=== PATIENT | female | born 1950 | race Native Hawaiian/Other Pacific Islander ===

== ENCOUNTER → 2017-08-15 | Outpatient (CLI) | payer MEDICARE, OTHER ==
--- NOTE | 2017-08-28 12:55 | P.ARTDOP ---
Arterial Doppler LOWER EXTREMITY ARTERIAL DOPPLER: DATE OF SERVICE: 08/15/2017 Reason for study: Toe ulcer. Doppler waveforms: Multiphasic bilaterally throughout. Pulse volume recording: Normal configuration. Pressure gradients: None. Ankle-brachial indices: Greater than 1 bilaterally. Toe pressures: [] on the right, [] on the left Impression: Normal study.
== END | disposition home or self-care (01) ==
LOC: RADUSWWP 08:34
PROVIDERS: ATTEND Family Medicine
DX: S91.204A Unspecified open wound of right lesser toe(s) with damage to nail, initial encounter (principal); X58.XXXA Exposure to other specified factors, initial encounter
CPT/HCPCS: 93923

== ENCOUNTER → 2018-03-14 | Outpatient (CLI) | payer MEDICARE, OTHER ==
--- NOTE | 2018-03-14 13:15 | US ---
EXAMINATION TYPE: US thyroid st tissue head/neck DATE OF EXAM: 03/14/2018 COMPARISON: NONE CLINICAL HISTORY: E04.1 THYROID NODULE. GLAND SIZE: Right Lobe: 4.6 x 1.5 x 1.9 cm Overall Parenchyma: homogenous Left Lobe: 3.7 x 1.6 x 1.7 cm Overall Parenchyma: homogeneous Isthmus Thickness: 0.3 cm NODULES RIGHT: # of nodules measured on right: 1 1. 2.6 x 1.7 x X 2.0 cm isoechoic solid nodule at the mid pole with well-defined margins. This nod ule is wider than tall and shows intranodular vascularity. LEFT: # of nodules measured on left: 0 ISTHMUS: # of nodules measured in the isthmus: 0 Bilateral neck scanned, no evidence of lymphadenopathy. IMPRESSION: Dominant 2.6 cm right thyroid nodule.
== END | disposition home or self-care (01) ==
LOC: RADUSWWP 12:15
PROVIDERS: ATTEND Otolaryngology
DX: E04.1 Nontoxic single thyroid nodule (principal)
CPT/HCPCS: 76536

== ENCOUNTER 2018-04-03 11:52 | Day surgery (SDC) | payer MEDICARE, OTHER ==
[2018-04-03 12:43] VITALS: TEMP 98
[2018-04-03] MEDS ORDERED: ALPRAZolam 0.25 MG TAB PO STA (12:51)
--- NOTE | 2018-04-03 13:55 | US ---
ULTRASOUND GUIDED FNA THYROID BIOPSY: CLINICAL HISTORY: Right thyroid nodule FINDINGS: The procedure was explained to the patient. The risks, complications, benefits and alternatives were discussed and any questions were answered. Informed consent was obtained. Patient was placed supin e on the ultrasound table and prepped and draped in the usual sterile fashion. Utilizing a 25 gauge needle, five passes were made into the requested nodule. Patient was stable throughout the procedure. Pathology is pending. All elements of maximal barrier technique were utilized. IMPRESSION: 1. Successful ultrasound guided FNA thyroid biopsy.
[2018-04-03 13:58] VITALS: BP 104/73; PULSE 84; RESP 14
== END 2018-04-03 14:22 | disposition home or self-care (01) ==
LOC: RADPROMAIN 11:52
PROVIDERS: ATTEND Otolaryngology
DX: E04.1 Nontoxic single thyroid nodule (principal)
CPT/HCPCS: 10022; 76942; 88173; 88305

== ENCOUNTER → 2018-07-24 | Outpatient (CLI) | payer MEDICARE, OTHER ==
--- NOTE | 2018-07-24 16:26 | BD ---
EXAMINATION TYPE: Axial Bone Density DATE OF EXAM: 07/24/2018 CLINICAL HISTORY Height: 60 inches Weight: 148 FRAX RISK QUESTIONS: Alcohol (3 or more units per day): no Family History (Parent hip fracture): no Glucocorticoids (More than 3mos): no (Ex: prednisone, prednisolone, methylprednisolone, dexamethasone, and hydrocortisone). History of Fracture in Adulthood: no Secondary Osteoporosis: 1. Type 1 Diabetes: no 2. Hyperthyroidism: no 3. Menopause before 45: hysterectomy age 36; menopause age 44 4. Malnutrition: unsure 5. Chronic liver disease: no Rheumatoid Arthritis: YES Current Tobacco Use: no RISK FACTORS HISTORY OF: Surgery to Wrist (right): to release tendon for more mobility When: unsure Family History of Osteoporosis: unsure Active: no Diet low in dairy products/other sources of calcium: unsure Postmenopausal woman: yes Take estrogen and/or progesterone medications: not now Lost more than 2 inches in height since high school: yes Frequent falls: not recently...did frequently when living at home Poor Health: yes Hyperparathyroidism: no Adrenal Insufficiency: no MEDICATIONS: Prednisone or other steroids: denies Thyroid Medications: no Osteoporosis Medications: no Additional Medications: cholesterol meds ; calcium, see med sheets attached Additional History: Right thyroid nodule & FNA thyroid biopsy with Ultrasound; polio as child, scolio sis; right knee surgery EXAM MEASUREMENTS: Bone mineral densitometry was performed using the Cympel System. Bone mineral density as measured about the Lumbar spine is: ----- L1-L4(G/cm2): 0.806 T Score Values are as follows: ----- L2: -3.1 ----- L3: -2.4 ----- L4: -3.2 ----- L1-L4: -3.1 Bone mineral density has: Decreased -3.9% since study of: 12/17/2007 Bone mineral density about the R hip (g/cm2): 0.646 Bone mineral density about the L hip (g/cm2): 0.587 T Score values are as follows: -----R Neck: -2.8 -----L Neck: -3.2 -----R Total: -2.5 -----L Total: -3.2 Bone mineral density has: Decreased -13.1% since study of: 09/25/2013 IMPRESSION: Osteoporosis (T Score less than -2.5). There is increased fracture risk and therapy is usually indicated based on age. Re-Screen 1-2 years. NOTE: T-SCORE=SD OF THE YOUNG ADULT MEAN.
--- NOTE | 2018-07-28 08:08 | MM ---
Reason for exam: screening (asymptomatic). Last mammogram was performed 3 years and 7 months ago. History: Patient is postmenopausal. Took estrogen for 5 years. Physical Findings: A clinical breast exam by your physician is recommended on an annual basis and results should be correlated with mammographic findings. MG 3D Screening Mammo W/Cad Bilateral CC and MLO view(s) were taken. Prior study comparison: December 15, 2014, bilateral MG screening mammo w CAD. September 25, 2013, bilateral digital screening mammo w/CAD. The breast tissue is heterogeneously dense. This may lower the sensitivity of mammography. No significant changes when compared with prior studies. ASSESSMENT: Benign, BI-RAD 2 RECOMMENDATION: Routine screening mammogram of both breasts in 1 year.
== END | disposition home or self-care (01) ==
LOC: RADBDWWP 12:05
PROVIDERS: ATTEND Family Medicine
DX: Z12.31 Encounter for screening mammogram for malignant neoplasm of breast (principal); M81.0 Age-related osteoporosis without current pathological fracture
CPT/HCPCS: 77063; 77067; 77080

== ENCOUNTER → 2018-12-09 | Outpatient (CLI) | payer MEDICARE, OTHER ==
[~2018-12-09] MED LIST: SODIUM CHLORIDE 0.9% 500 ML 500 ML in EMPTY BAG 1 BAG IV PRN; ZOLEDRONIC ACID 5 MG in SODIUM CHLORIDE 0.9% 100 ML IV NR
[2018-12-09 13:55] VITALS: BP 123/70; PULSE 76; RESP 16; TEMP 97.6
== END | disposition home or self-care (01) ==
LOC: PROCWHC3 13:19
PROVIDERS: ATTEND Nurse Practitioner Acute Care
DX: M85.9 Disorder of bone density and structure, unspecified (principal); Z88.0 Allergy status to penicillin; Z88.5 Allergy status to narcotic agent
CPT/HCPCS: 96365; J3489

== ENCOUNTER → 2018-12-24 | Outpatient (CLI) | payer MEDICARE, OTHER ==
--- NOTE | 2018-12-24 12:45 | US ---
EXAMINATION TYPE: US thyroid st tissue head/neck DATE OF EXAM: 12/24/2018 COMPARISON: US 2018 CLINICAL HISTORY: E04.1 THYROID NODULE. Follow up thyroid nodule GLAND SIZE: Right Lobe: 5.0 x 2.0 x 1.8 cm Overall Parenchyma: heterogenous Left Lobe: 2.8 x 1.1 x 1.6 cm Overall Parenchyma: heterogeneous Isthmus Thickness: 0.3 cm NODULES RIGHT: # of nodules measured on right: 1 1. 2.7 X 2.0 x 2.4 cm hypoechoic mixed nodule at the lower pole with well-defined margins. This nod ule is wider than tall and shows intranodular vascularity. Prior size: 2.6 x 1.7 x 2.0 cm LEFT: # of nodules measured on left: 0 ISTHMUS: # of nodules measured in the isthmus: 0 Bilateral neck scanned, no evidence of lymphadenopathy. IMPRESSION: Heterogeneous gland with right lobe nodule described above.
== END | disposition home or self-care (01) ==
LOC: RADUSWWP 12:09
PROVIDERS: ATTEND Otolaryngology
DX: E04.1 Nontoxic single thyroid nodule (principal)
CPT/HCPCS: 76536

== ENCOUNTER → 2020-01-22 | Outpatient (CLI) | payer MEDICARE, OTHER ==
--- NOTE | 2020-01-22 08:46 | US ---
EXAMINATION TYPE: US thyroid st tissue head/neck DATE OF EXAM: 01/22/2020 COMPARISON: 03/07/1718, 04/03/2018, and 12/24/2018 CLINICAL HISTORY: E04.1 Thyroid nodule. GLAND SIZE: Right Lobe: 5.2 x 2.5 x 2.5 cm Overall Parenchyma: homogenous Left Lobe: 3.6 x 1.7 x 1.4 cm Overall Parenchyma: homogeneous Isthmus Thickness: 0.2 cm NODULES RIGHT: # of nodules measured on right: 1 1. 3.2 X 2.0 x 2.0 cm echogenic mixed nodule at the lower pole with well- defined margins. This nodul e is wider than tall and shows intranodular vascularity. Previous 2.7 X 2.0 x 2.4 LEFT: # of nodules measured on left: 0 ISTHMUS: # of nodules measured in the isthmus: 0 Bilateral neck scanned, no evidence of lymphadenopathy. IMPRESSION: Right thyroid nodule has slightly increased in one dimension but decreased in another dim ension. Overall only very minimal interval growth in comparison to the prior of 12/24/2018 and 8. This appears to have been biopsied and 04/03/2018. Correlate with biopsy results.
== END | disposition home or self-care (01) ==
LOC: RADUSWWP 08:04
PROVIDERS: ATTEND Otolaryngology
DX: E04.1 Nontoxic single thyroid nodule (principal)
CPT/HCPCS: 76536

== ENCOUNTER 2023-02-04 12:53 | Emergency (ER) | payer MEDICARE, OTHER ==
[2023-02-04 13:01] VITALS: RESP 18
--- NOTE | 2023-02-04 13:15 | ED ---
General Adult HPI - General Chief complaint: Extremity Problem,Nontraumatic Stated complaint: Vascular Issues Time Seen by Provider: 02/04/23 13:00 Source: patient, RN notes reviewed, old records reviewed Mode of arrival: EMS Limitations: no limitations - History of Present Illness Initial comments: This is a 72-year-old female who was sent in from the senior living because her toes are normal red but he turned purple they were concerned that she did not have pulses. Patient himself states the feet hurt only when we touched him otherwise is not that bad. Patient has no other complaints. No one else is with the patient to give us any further history at this time. I will eventually speak with Dr. Wooten - Related Data Home Medications Medication Instructions Recorded Confirmed Calcium Carbonate/Vitamin D3 2 each PO DAILY 09/13/15 12/09/18 [Calcium 600 + Vit D Tablet] Clopidogrel Bisulfate [Plavix] 75 mg PO DAILY 09/13/15 12/09/18 Folic Acid 1 mg PO DAILY 09/13/15 12/09/18 Hydrocodone/Acetaminophen [Canvas 1 each PO TID 09/13/15 12/09/18 5-325] Multivit-Min/FA/Lycopen/Lutein 1 each PO DAILY 09/13/15 12/09/18 [Centrum Silver Tablet] Phenytoin Sodium Extended 100 mg PO QAM 09/13/15 12/09/18 [Dilantin] Phenytoin Sodium Extended 200 tab PO HS 09/13/15 12/09/18 [Dilantin] cycloSPORINE 0.05% OPHTH SOLN 1 drops BOTH EYES BID 09/13/15 12/09/18 [Restasis 0.05% Ophth Soln] hydroCHLOROthiazide 12.5 mg PO DAILY 09/13/15 12/09/18 prednisoLONE ACETATE 1% OPHTH 1 drops RIGHT EYE QAM 09/13/15 12/09/18 [Pred Forte 1%] Atorvastatin [Lipitor] 20 mg PO DAILY 03/31/18 12/09/18 Brinzolamide [Azopt 1% Ophth Susp] 1 drop LEFT EYE BID 03/31/18 12/09/18 Cholecalciferol [Vitamin D3] 1,000 unit PO DAILY 03/31/18 12/09/18 Clotrimazole [Clotrimazole 1% Top 1 applic TOPICAL DAILY 03/31/18 12/09/18 Soln] Cyclobenzaprine [Flexeril] 10 mg PO TID PRN 03/31/18 12/09/18 Famotidine 20 mg PO BID 03/31/18 12/09/18 Magnesium Hydroxide [Milk of 30 ml PO TID PRN 03/31/18 12/09/18 Magnesia] Metoprolol Succinate (ER) [Toprol 12.5 mg PO DAILY 03/31/18 12/09/18 Xl] Na Phos,M-B/Na Phos,Di-Ba [Fleet 133 ml RECTAL ONCE PRN 03/31/18 12/09/18 Adult] Propylene Glycol/Peg 400/Pf 1 dropper BOTH EYES BID 03/31/18 12/09/18 [Systane 0.3-0.4% Eye Drops] Tofacitinib Citrate [Xeljanz Xr] 11 mg PO DAILY 03/31/18 12/09/18 Ubidecarenone [Co Q-10] 200 mg PO DAILY 03/31/18 12/09/18 bisacodyL [Dulcolax] 10 mg RECTAL DAILY PRN 03/31/18 12/09/18 timoloL maleate [timoloL maleate 1 drop RIGHT EYE BID 03/31/18 12/09/18 0.5% Ophth Gel] Allergies Allergy/AdvReac Type Severity Reaction Status Date / Time hydroxychloroquine Allergy Rash/Hives Verified 02/04/23 13:01 [From Plaquenil] Penicillins Allergy Rash/Hives Verified 02/04/23 13:01 Review of Systems ROS Statement: Those systems with pertinent positive or pertinent negative responses have been documented in the HPI. ROS Other: All systems not noted in ROS Statement are negative. Past Medical History Past Medical History: COPD, CVA/TIA, Deep Vein Thrombosis (DVT), Eye Disorder, GERD/Reflux, Osteoarthritis (OA), Rheumatoid Arthritis (RA), Thyroid Disorder Additional Past Medical History / Comment(s): Hx iron deficiency anemia. Epilepsy; Hx of hypokalemia. 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 Glaucoma. Peptic ulcer History of Any Multi-Drug Resistant Organisms: MRSA Date of last positivie culture/infection: unknown MDRO Source:: unknown Past Surgical History: Hysterectomy, Joint Replacement, Orthopedic Surgery Additional Past Surgical History / Comment(s): RIGHT TOTAL KNEE; RIGHT FOOT HAMMER TOE REPAIR; RIGHT HAND TENDON REPAIR; BILATERAL CATARACT REMOVAL AND PROCEDURE FOR GLAUCOMA ON BOTH EYES; HYSTERECTOMY; RECTAL SURGERY Past Anesthesia/Blood Transfusion Reactions: No Reported Reaction Past Psychological History: No Psychological Hx Reported Smoking Status: Never smoker Past Alcohol Use History: Rare Past Drug Use History: None Reported General Exam - General Exam Comments Initial Comments: GENERAL: Patient is well-developed and well-nourished. Patient is nontoxic and well- hydrated and is in no acute distress. ENT: Neck is soft and supple. No significant lymphadenopathy is noted. Oropharynx is clear. Moist mucous membranes. Neck has full range of motion without eliciting any pain. 6640 EYES: The sclera were anicteric and conjunctiva were pink and moist. Extraocular movements were intact and pupils were equal round and reactive to light. Eyelids were unremarkable. PULMONARY: Unlabored respirations. Good breath sounds bilaterally. No audible rales rhonchi or wheezing was noted. CARDIOVASCULAR: There is a regular rate and rhythm without any murmurs gallops or rubs. ABDOMEN: Soft and nontender with normal bowel sounds. No palpable organomegaly was noted. There is no palpable pulsatile mass. SKIN: Skin is clear with no lesions or rashes and otherwise unremarkable. NEUROLOGIC: Patient is alert and oriented 2. Cranial nerves II through XII are grossly intact. Motor and sensory are also intact. Normal speech, volume and content. Symmetrical smile. 6640 MUSCULOSKELETAL: Normal extremities with adequate strength and full range of motion. Patient has redness to the toes on both feet but more so on the left there is no palpable dorsal Mujica pedis on the left but there is a palpable posterior tibial pulse. The right has both pulses in the foot. The midfoot bilaterally is not erythematous or purple at this time it is also cool but not cold LYMPHATICS: No significant lymphadenopathy is noted PSYCHIATRIC: Normal psychiatric evaluation. 6640 Limitations: no limitations Course Vital Signs 02/04/23 02/04/23 12:56 14:50 Temperature 98.4 F Pulse Rate 80 77 Respiratory 18 18 Rate Blood Pressure 139/88 134/85 O2 Sat by Pulse 100 97 Oximetry Medical Decision Making - Medical Decision Making Was pt. sent in by a medical professional or institution (, PA, BLOWER INSULATOR, urgent care, hospital, or senior living...) When possible be specific @ -Patient was sent in from the senior living who had spoken with her doctor. Did you speak to anyone other than the patient for history (EMS, parent, family, police, friend...)? What history was obtained from this source @ -EMS gave some of the history as did the senior living. Did you review nursing and triage notes (agree or disagree)? Why? @ -I reviewed and agree with nursing and triage notes Were old charts reviewed (outside hosp., previous admission, EMS record, old EKG, old radiological studies, urgent care reports/EKG's, senior living records)? Report findings @ -I reviewed prior laboratory studies on this patient Differential Diagnosis (chest pain, altered mental status, abdominal pain women, abdominal pain men, vaginal bleeding, weakness, fever, dyspnea, syncope, headache, dizziness, GI bleed, back pain, seizure, CVA, palpatations, mental health, musculoskeletal)? @ -Arterial occlusion, DVT, cellulitis, hematoma EKG interpreted by me (3pts min.). @ -As above X-rays interpreted by me (1pt min.). @ -None done CT interpreted by me (1pt min.). @ -None done U/S interpreted by me (1pt. min.). @ -None done What testing was considered but not performed or refused? (CT, X-rays, U/S, labs)? Why? @ -None What meds were considered but not given or refused? Why? @ -None Did you discuss the management of the patient with other professionals (professionals i.e. , PA, BLOWER INSULATOR, lab, RT, psych nurse, health care social worker, inspector casing, teacher, sba business development officer, showcase trimmer)? Give summary @ -Dr. Martinez saw the patient did not think that she had any significant arterial occlusion because she had PT pulses Was smoking cessation discussed for >3mins.? @ -No Was critical care preformed (if so, how long)? @ -No Were there social determinants of health that impacted care today? How? (Homelessness, low income, unemployed, alcoholism, drug addiction, transportation, low edu. Level, literacy, decrease access to med. care, fdc, rehab)? @ -No Was there de-escalation of care discussed even if they declined (Discuss DNR or withdrawal of care, Hospice)? DNR status @ -No What co-morbidities impacted this encounter? (DM, HTN, Smoking, COPD, CAD, Cancer, CVA, ARF, Chemo, Hep., AIDS, mental health diagnosis, sleep apnea, morbid obesity)? @ -None Was patient admitted / discharged? Hospital course, mention meds given and route, prescriptions, significant lab abnormalities, going to OR and other pertinent info. @ -Patient's lab work came back relatively normal patient did have posterior tibial pulses on the left and posterior tibial and dorsalis pedis pulses on the right it was thought the patient go home. Dr. Martinez saw the person and agreed to this would be a good plan. I spoke with Dr. Jha he agreed that they would follow patient up in the senior living Undiagnosed new problem with uncertain prognosis? @ -No Drug Therapy requiring intensive monitoring for toxicity (Heparin, Nitro, Insulin, Cardizem)? @ -No Were any procedures done? @ -No Diagnosis/symptom? @ -Chronic cellulitis of the feet Acute, or Chronic, or Acute on Chronic? @ -Chronic Uncomplicated (without systemic symptoms) or Complicated (systemic symptoms)? @ -default Side effects of treatment? @ -No Exacerbation, Progression, or Severe Exacerbation? @ -No Poses a threat to life or bodily function? How? (Chest pain, [place], MA, pneumonia, PE, COPD, DKA, ARF, appy, cholecystitis, CVA, Diverticulitis, Homicidal, Suicidal, threat to staff... and all critical care pts) @ -No - Lab Data Result diagrams: 02/04/23 14:26 02/04/23 14:26 Lab Results 02/04/23 02/04/23 Range/Units 14:26 14:26 WBC 4.5 (3.8-10.6) k/uL RBC 4.83 (3.80-5.40) m/uL Hgb 9.2 L (11.4-16.0) gm/dL Hct 30.5 L (34.0-46.0) % MCV 63.1 L (80.0-100.0) fL MCH 19.1 L (25.0-35.0) pg MCHC 30.2 L (31.0-37.0) g/dL RDW 19.8 H (11.5-15.5) % Plt Count 370 (150-450) k/uL MPV 7.7 Neutrophils % 67 % Lymphocytes % 16 % Monocytes % 9 % Eosinophils % 5 % Basophils % 0 % Neutrophils # 3.0 (1.3-7.7) k/uL Lymphocytes # 0.7 L (1.0-4.8) k/uL Monocytes # 0.4 (0-1.0) k/uL Eosinophils # 0.2 (0-0.7) k/uL Basophils # 0.0 (0-0.2) k/uL Hypochromasia Marked Poikilocytosis Slight Anisocytosis Slight Microcytosis Marked Sodium 132 L (137-145) mmol/L Potassium 4.1 (3.5-5.1) mmol/L Chloride 102 (98-107) mmol/L Carbon Dioxide 26 (22-30) mmol/L Anion Gap 4 mmol/L BUN 23 H (7-17) mg/dL Creatinine 0.55 (0.52-1.04) mg/dL Est GFR (CKD-EPI)AfAm >90 (>60 ml/min/1.73 sqM) Est GFR (CKD-EPI)NonAf >90 (>60 ml/min/1.73 sqM) Glucose 92 (74-99) mg/dL Calcium 8.7 (8.4-10.2) mg/dL Total Bilirubin 0.2 (0.2-1.3) mg/dL AST 31 (14-36) U/L ALT 20 (4-34) U/L Alkaline Phosphatase 147 H (38-126) U/L Total Protein 7.0 (6.3-8.2) g/dL Albumin 3.6 (3.5-5.0) g/dL Disposition Clinical Impression: Chronic cellulitis Disposition: HOME SELF-CARE Condition: Good Is patient prescribed a controlled substance at d/c from ED?: No Referrals: Davon Wooten MD [Primary Care Provider] - 1-2 days Time of Disposition: 16:12
[2023-02-04 14:29] LABS: Anisocytosis Slight; Basophils % (A) 0 %; Eosinophils # (A) 0.2 k/uL (0-0.7); Eosinophils % (A) 5 %; HCT 30.5 % (34.0-46.0); HGB 9.2 gm/dL (11.4-16.0); Hypochromasia Marked; Lymphocytes # (A) 0.7 k/uL (1.0-4.8); Lymphocytes % (A) 16 %; MCH 19.1 pg (25.0-35.0); MCHC 30.2 g/dL (31.0-37.0); MCV 63.1 fL (80.0-100.0); Mean Platelet Volume 7.7; Microcytosis Marked; Monocytes # (A) 0.4 k/uL (0-1.0); Monocytes % (A) 9 %; Neutrophils % (A) 67 %; Platelet Count 370 k/uL (150-450); Poikilocytosis Slight; RBC 4.83 m/uL (3.80-5.40); RDW 19.8 % (11.5-15.5); WBC 4.5 k/uL (3.8-10.6)
[2023-02-04 15:45] LABS: ALT 20 U/L (4-34); AST 31 U/L (14-36); African American GFR (CKD) >90 (>60 ml/min/1.73 sqM); Albumin 3.6 g/dL (3.5-5.0); Alkaline Phosphatase 147 U/L (38-126); Anion Gap 4 mmol/L; Blood Urea Nitrogen 23 mg/dL (7-17); Calcium 8.7 mg/dL (8.4-10.2); Carbon Dioxide 26 mmol/L (22-30); Chloride 102 mmol/L (98-107); Glucose 92 mg/dL (74-99); Non-African American GFR(CKD) >90 (>60 ml/min/1.73 sqM); Potassium 4.1 mmol/L (3.5-5.1); Sodium 132 mmol/L (137-145); Total Bilirubin 0.2 mg/dL (0.2-1.3)
[2023-02-04 17:02] VITALS: BP 140/96; PULSE 67; TEMP 97.6
== END 2023-02-04 18:56 | disposition home or self-care (01) ==
LOC: EC 12:53
DX: L03.115 Cellulitis of right lower limb (principal); K21.9 Gastro-esophageal reflux disease without esophagitis; J44.9 Chronic obstructive pulmonary disease, unspecified; Z88.0 Allergy status to penicillin; Z90.710 Acquired absence of both cervix and uterus; Z96.651 Presence of right artificial knee joint
CPT/HCPCS: 36415; 80053; 85025; 99284

== ENCOUNTER 2023-05-23 16:44 | Inpatient (IN) | payer MEDICARE, OTHER ==
--- NOTE | 2023-05-23 17:13 | ED ---
General Adult HPI - General Chief complaint: Neuro Symptoms/Deficit Stated complaint: Infection Time Seen by Provider: 05/23/23 16:45 Source: patient, family, RN notes reviewed Mode of arrival: EMS Limitations: no limitations - History of Present Illness Initial comments: Patient is a pleasant 72-year-old female presenting to the emergency department with concern for infection left neck. Patient noticed discomfort yesterday morning. Patient does have history of previous IV placement followed by infection pelvic surgery. Patient also has problems with her vision. Patient normally is legally blind. Patient unclear when vision started to change. Originally she stated around lunchtime. Patient later stated yesterday morning and again stated maybe this morning. Patient states she is able to see some shadows. Obtaining history is difficult as patient is a poor historian. Majority of history comes from daughter. - Related Data Home Medications Medication Instructions Recorded Confirmed Clopidogrel Bisulfate [Plavix] 75 mg PO DAILY@0800 09/13/15 05/23/23 Folic Acid 1 mg PO DAILY@0800 09/13/15 05/23/23 Hydrocodone/Acetaminophen [[place] 1 tab PO TID PRN 09/13/15 05/23/23 5-325] Multivit-Min/FA/Lycopen/Lutein 1 tab PO DAILY@0800 09/13/15 05/23/23 [Centrum Silver Tablet] Phenytoin Sodium Extended 100 mg PO DAILY@1700 09/13/15 05/23/23 [Dilantin] Phenytoin Sodium Extended 200 mg PO DAILY@0800 09/13/15 05/23/23 [Dilantin] prednisoLONE ACETATE 1% OPHTH 1 drop RIGHT EYE DAILY@0800 09/13/15 05/23/23 [Pred Forte 1%] Atorvastatin [Lipitor] 20 mg PO HS@2100 03/31/18 05/23/23 Brinzolamide [Azopt 1% Ophth Susp] 1 drop LEFT EYE BID@0800,1700 03/31/18 05/23/23 Metoprolol Succinate (ER) [Toprol 12.5 mg PO DAILY@0800 03/31/18 05/23/23 Xl] Na Phos,M-B/Na Phos,Di-Ba [Fleet 133 ml RECTAL DAILY PRN 03/31/18 05/23/23 Adult] Propylene Glycol/Peg 400/Pf 1 drop BOTH EYES BID PRN 03/31/18 05/23/23 [Systane 0.3-0.4% Eye Drops] Tofacitinib Citrate [Xeljanz Xr] 11 mg PO DAILY@0800 03/31/18 05/23/23 Ubidecarenone [Co Q-10] 200 mg PO DAILY@0800 03/31/18 05/23/23 bisacodyL [Dulcolax] 10 mg RECTAL DAILY PRN 03/31/18 05/23/23 timoloL maleate [timoloL maleate 1 drop LEFT EYE DAILY@0800 03/31/18 05/23/23 0.5% Ophth Gel] Acetaminophen Tab [Tylenol] 650 mg PO Q4H PRN 02/04/23 05/23/23 Calcium Carbonate 1,000 mg PO DAILY@1200 02/04/23 05/23/23 Cholecalciferol [Vitamin D3 (25 25 mcg PO DAILY@0800 02/04/23 05/23/23 Mcg = 1000 Iu)] Diclofenac Sodium Gel [Voltaren 2 gm TOPICAL QID PRN 02/04/23 05/23/23 Gel] Ergocalciferol [Vitamin D2 (1250 1,250 mcg PO FR@1700 02/04/23 05/23/23 Mcg = 06747 Iu)] Lactose-Reduced Food [Ensure Plus] 237 ml PO TID@0800,1200,1600 02/04/23 05/23/23 Lidocaine Patch 4% 1 patch TOPICAL DAILY 02/04/23 05/23/23 Magnesium Hydroxide [Milk of 7,200 mg PO DAILY PRN 02/04/23 05/23/23 Magnesia Concentrate] Menthol [Biofreeze] 1 applic TOPICAL QID PRN 02/04/23 05/23/23 cycloSPORINE 0.05% OPHTH SOLN 1 drop BOTH EYES BID@0800,1700 02/04/23 05/23/23 [Restasis] Ciprofloxacin HCl [Cipro] 500 mg PO BID@0800,2100 05/23/23 05/23/23 Cyclobenzaprine [Flexeril] 5 mg PO HS 05/23/23 05/23/23 Ferrous Sulfate [Feosol] 325 mg PO BID@0800,1700 05/23/23 05/23/23 Pantoprazole Sodium [Protonix] 40 mg PO DAILY@0800 05/23/23 05/23/23 Allergies Allergy/AdvReac Type Severity Reaction Status Date / Time hydroxychloroquine Allergy Rash/Hives Verified 05/23/23 18:16 [From Plaquenil] Penicillins Allergy Rash/Hives Verified 05/23/23 18:16 Review of Systems ROS Statement: Those systems with pertinent positive or pertinent negative responses have been documented in the HPI. ROS Other: All systems not noted in ROS Statement are negative. Constitutional: Denies: fever Eyes: Reports: vision change ENT: Reports: as per HPI. Denies: ear pain Respiratory: Denies: cough Cardiovascular: Denies: chest pain Endocrine: Denies: fatigue Gastrointestinal: Denies: abdominal pain Genitourinary: Denies: dysuria Musculoskeletal: Denies: back pain Skin: Reports: as per HPI Past Medical History Past Medical History: COPD, CVA/TIA, Deep Vein Thrombosis (DVT), Eye Disorder, GERD/Reflux, Osteoarthritis (OA), Rheumatoid Arthritis (RA), Thyroid Disorder Additional Past Medical History / Comment(s): Hx iron deficiency anemia. Epilepsy; Hx of hypokalemia. 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 Glaucoma. Peptic ulcer History of Any Multi-Drug Resistant Organisms: MRSA Date of last positivie culture/infection: unknown MDRO Source:: unknown Past Surgical History: Hysterectomy, Joint Replacement, Orthopedic Surgery Additional Past Surgical History / Comment(s): RIGHT TOTAL KNEE; RIGHT FOOT HAMMER TOE REPAIR; RIGHT HAND TENDON REPAIR; BILATERAL CATARACT REMOVAL AND PROCEDURE FOR GLAUCOMA ON BOTH EYES; HYSTERECTOMY; RECTAL SURGERY Past Anesthesia/Blood Transfusion Reactions: No Reported Reaction Past Psychological History: No Psychological Hx Reported Smoking Status: Never smoker Past Alcohol Use History: Rare Past Drug Use History: None Reported General Exam Limitations: no limitations General appearance: alert, in no apparent distress Head exam: Present: atraumatic Eye exam: Present: EOMI, other (Left pupil nonreactive. Right pupil sluggish. Cataracts present.) ENT exam: Present: normal oropharynx Neck exam: Present: other (Low the left ear there is a 2 x 2 centimeter tender erythematous nodule. There is some erythema extending midway down the left lateral neck. Previous surgical scar present) Respiratory exam: Present: normal lung sounds bilaterally Cardiovascular Exam: Present: regular rate, normal rhythm GI/Abdominal exam: Present: soft. Absent: tenderness Extremities exam: Present: normal inspection Neurological exam: Present: alert, oriented X3. Absent: motor sensory deficit Psychiatric exam: Present: normal affect, normal mood Skin exam: Present: erythema (Left neck) Course Vital Signs 05/23/23 05/23/23 05/23/23 16:53 18:07 19:06 Temperature 97.7 F 98.1 F Pulse Rate 82 81 79 Respiratory 20 16 16 Rate Blood Pressure 133/81 128/88 145/81 O2 Sat by Pulse 95 96 95 Oximetry Medical Decision Making - Medical Decision Making Was pt. sent in by a medical professional or institution (, PA, STUDENT UNION CONSULTANT, urgent care, hospital, or fpc...) When possible be specific @ -Patient was sent from nursing facility Did you speak to anyone other than the patient for history (EMS, parent, family, police, friend...)? What history was obtained from this source @ -Daughter is present and helps provide history including change in vision. Did you review nursing and triage notes (agree or disagree)? Why? @ -I reviewed and agree with nursing and triage notes Were old charts reviewed (outside hosp., previous admission, EMS record, old EKG, old radiological studies, urgent care reports/EKG's, fpc records)? Report findings @ -No old charts were reviewed Differential Diagnosis (chest pain, altered mental status, abdominal pain women, abdominal pain men, vaginal bleeding, weakness, fever, dyspnea, syncope, headache, dizziness, GI bleed, back pain, seizure, CVA, palpatations, mental health, musculoskeletal)? @ -Differential Weakness: Hypoglycemia, shock, sepsis, hyponatremia, anemia, infection, [place], ETOH, adverse medicine reaction, overdose, stroke, this is not meant to be an all-inclusive list. EKG interpreted by me (3pts min.). @ -As above X-rays interpreted by me (1pt min.). @ -Chest x-ray shows left lower lobe infiltrate CT interpreted by me (1pt min.). @ -Reports reviewed U/S interpreted by me (1pt. min.). @ -None done What testing was considered but not performed or refused? (CT, X-rays, U/S, labs)? Why? @ -None What meds were considered but not given or refused? Why? @ -None Did you discuss the management of the patient with other professionals (professionals i.e. DrHeather, PA, STUDENT UNION CONSULTANT, lab, RT, psych nurse, social service technician, zoology professor, teacher, chief science officer, case mgr)? Give summary @ -Case was discussed with Dr. Duncan, who will admit covering Dr. Sabina. Sneed. Was smoking cessation discussed for >3mins.? @ -No Was critical care preformed (if so, how long)? @ -No Were there social determinants of health that impacted care today? How? (Homelessness, low income, unemployed, alcoholism, drug addiction, transportation, low edu. Level, literacy, decrease access to med. care, skilled nursing, rehab)? @ -No Was there de-escalation of care discussed even if they declined (Discuss DNR or withdrawal of care, Hospice)? DNR status @ -No What co-morbidities impacted this encounter? (DM, HTN, Smoking, COPD, CAD, Cancer, CVA, ARF, Chemo, Hep., AIDS, mental health diagnosis, sleep apnea, morbid obesity)? @ -History of being legally blind with worsening symptoms Was patient admitted / discharged? Hospital course, mention meds given and route, prescriptions, significant lab abnormalities, going to OR and other pertinent info. @ -Patient reevaluated. Patient family updated. Patient will be admitted with several consults Undiagnosed new problem with uncertain prognosis? @ -No Drug Therapy requiring intensive monitoring for toxicity (Heparin, Nitro, Insulin, Cardizem)? @ -No Were any procedures done? @ -No Diagnosis/symptom? @ -Pneumonia, lymphadenopathy, visual changes Acute, or Chronic, or Acute on Chronic? @ -Acute, acute, acute on chronic Uncomplicated (without systemic symptoms) or Complicated (systemic symptoms)? @ -default Side effects of treatment? @ -No Exacerbation, Progression, or Severe Exacerbation? @ -No Poses a threat to life or bodily function? How? (Chest pain, [place], [place], pneumonia, PE, COPD, DKA, ARF, appy, cholecystitis, CVA, Diverticulitis, Homicidal, Suicidal, threat to staff... and all critical care pts) @ -No - Lab Data Result diagrams: 05/23/23 17:07 05/23/23 17:07 Lab Results 05/23/23 05/23/23 05/23/23 Range/Units 17:07 17:07 17:07 WBC 4.6 (3.8-10.6) k/uL RBC 4.89 (3.80-5.40) m/uL Hgb 11.4 (11.4-16.0) gm/dL Hct 36.8 (34.0-46.0) % MCV 75.3 L (80.0-100.0) fL MCH 23.3 L (25.0-35.0) pg MCHC 30.9 L (31.0-37.0) g/dL RDW 27.6 H (11.5-15.5) % Plt Count 280 (150-450) k/uL MPV 6.9 Neutrophils % 71 % Lymphocytes % 16 % Monocytes % 7 % Eosinophils % 4 % Basophils % 0 % Neutrophils # 3.2 (1.3-7.7) k/uL Lymphocytes # 0.7 L (1.0-4.8) k/uL Monocytes # 0.3 (0-1.0) k/uL Eosinophils # 0.2 (0-0.7) k/uL Basophils # 0.0 (0-0.2) k/uL Hypochromasia Slight Anisocytosis Marked Microcytosis Marked PT 9.9 (9.0-12.0) sec INR 0.9 (<1.2) APTT 23.3 (22.0-30.0) sec Sodium 135 L (137-145) mmol/L Potassium 4.4 (3.5-5.1) mmol/L Chloride 101 (98-107) mmol/L Carbon Dioxide 27 (22-30) mmol/L Anion Gap 7 mmol/L BUN 16 (7-17) mg/dL Creatinine 0.48 L (0.52-1.04) mg/dL Est GFR (CKD-EPI)AfAm >90 (>60 ml/min/1.73 sqM) Est GFR (CKD-EPI)NonAf >90 (>60 ml/min/1.73 sqM) Glucose 93 (74-99) mg/dL Plasma Lactic Acid [place] (0.7-2.0) mmol/L Calcium 9.0 (8.4-10.2) mg/dL Total Bilirubin 0.2 (0.2-1.3) mg/dL AST 29 (14-36) U/L ALT 22 (4-34) U/L Alkaline Phosphatase 157 H (38-126) U/L Creatine Kinase 38 (30-135) U/L Total Protein 7.4 (6.3-8.2) g/dL Albumin 3.8 (3.5-5.0) g/dL 05/23/23 Range/Units 17:24 WBC (3.8-10.6) k/uL RBC (3.80-5.40) m/uL Hgb (11.4-16.0) gm/dL Hct (34.0-46.0) % MCV (80.0-100.0) fL MCH (25.0-35.0) pg MCHC (31.0-37.0) g/dL RDW (11.5-15.5) % Plt Count (150-450) k/uL MPV Neutrophils % % Lymphocytes % % Monocytes % % Eosinophils % % Basophils % % Neutrophils # (1.3-7.7) k/uL Lymphocytes # (1.0-4.8) k/uL Monocytes # (0-1.0) k/uL Eosinophils # (0-0.7) k/uL Basophils # (0-0.2) k/uL Hypochromasia Anisocytosis Microcytosis PT (9.0-12.0) sec INR (<1.2) APTT (22.0-30.0) sec Sodium (137-145) mmol/L Potassium (3.5-5.1) mmol/L Chloride (98-107) mmol/L Carbon Dioxide (22-30) mmol/L Anion Gap mmol/L BUN (7-17) mg/dL Creatinine (0.52-1.04) mg/dL Est GFR (CKD-EPI)AfAm (>60 ml/min/1.73 sqM) Est GFR (CKD-EPI)NonAf (>60 ml/min/1.73 sqM) Glucose (74-99) mg/dL Plasma Lactic Acid [place] 0.9 (0.7-2.0) mmol/L Calcium (8.4-10.2) mg/dL Total Bilirubin (0.2-1.3) mg/dL AST (14-36) U/L ALT (4-34) U/L Alkaline Phosphatase (38-126) U/L Creatine Kinase (30-135) U/L Total Protein (6.3-8.2) g/dL Albumin (3.5-5.0) g/dL Disposition Clinical Impression: Pneumonia Disposition: ADMITTED IP TO THIS HOSP Is patient prescribed a controlled substance at d/c from ED?: No Referrals: Davon Wooten MD [Primary Care Provider] - 1-2 days Time of Disposition: 19:48
[2023-05-23 17:29] LABS: Anisocytosis Marked; Basophils % (A) 0 %; Eosinophils # (A) 0.2 k/uL (0-0.7); Eosinophils % (A) 4 %; HCT 36.8 % (34.0-46.0); HGB 11.4 gm/dL (11.4-16.0); Hypochromasia Slight; Lymphocytes # (A) 0.7 k/uL (1.0-4.8); Lymphocytes % (A) 16 %; MCH 23.3 pg (25.0-35.0); MCHC 30.9 g/dL (31.0-37.0); MCV 75.3 fL (80.0-100.0); Mean Platelet Volume 6.9; Microcytosis Marked; Monocytes # (A) 0.3 k/uL (0-1.0); Monocytes % (A) 7 %; Neutrophils # (A) 3.2 k/uL (1.3-7.7); Neutrophils % (A) 71 %; Platelet Count 280 k/uL (150-450); RBC 4.89 m/uL (3.80-5.40); WBC 4.6 k/uL (3.8-10.6)
[2023-05-23 17:40] LABS: ALT 22 U/L (4-34); AST 29 U/L (14-36); African American GFR (CKD) >90 (>60 ml/min/1.73 sqM); Albumin 3.8 g/dL (3.5-5.0); Alkaline Phosphatase 157 U/L (38-126); Anion Gap 7 mmol/L; Blood Urea Nitrogen 16 mg/dL (7-17); Carbon Dioxide 27 mmol/L (22-30); Chloride 101 mmol/L (98-107); Creatine Kinase 38 U/L (30-135); Glucose 93 mg/dL (74-99); Non-African American GFR(CKD) >90 (>60 ml/min/1.73 sqM); Potassium 4.4 mmol/L (3.5-5.1); Sodium 135 mmol/L (137-145); Total Bilirubin 0.2 mg/dL (0.2-1.3); Total Protein 7.4 g/dL (6.3-8.2)
[2023-05-23 17:41] LABS: RDW 27.6 % (11.5-15.5)
[2023-05-23 17:43] LABS: INR 0.9 (<1.2); Partial Thromboplastin Time 23.3 sec (22.0-30.0); Prothrombin Time 9.9 sec (9.0-12.0)
--- NOTE | 2023-05-23 18:30 | XR ---
EXAMINATION TYPE: XR chest 2V DATE OF EXAM: 05/23/2023 5:38 PM COMPARISON: Chest x-ray 05/28/2013 TECHNIQUE: XR chest 2V . CLINICAL INDICATION:Female, 72 years old with history of altered mental status; FINDINGS: Lungs/Pleura: Left lower lobe, retrocardiac airspace opacity. Right basilar atelectasis. No pneumotho rax or sizable pleural effusion. Pulmonary vascularity: Unremarkable. Heart/mediastinum: Cardiomediastinal silhouette is unremarkable. Atherosclerotic calcifications are seen in the aorta. Musculoskeletal: Severe scoliotic curvature of the thoracolumbar spine IMPRESSION: Left lower lobe airspace opacity concerning for acute infectious process.
--- NOTE | 2023-05-23 19:33 | CT ---
EXAMINATION TYPE: CT angio head neck CT DLP: 489.2 mGycm, Automated exposure control for dose reduction was used. DATE OF EXAM: 05/23/2023 7:00 PM COMPARISON: CT head 05/23/2023. CLINICAL INDICATION:Female, 72 years old with history of Neuro deficit, acute, stroke suspect, eval L Neck; PHH, Neuro deficit, acute, stroke suspect, eval L Neck TECHNIQUE: Axially acquired helical CT angiogram of the head and neck was obtained with contrast. Axi al images are supplemented with 3D reconstructions [facility] NASCET criteria used. Contrast used:65ml mL of Isovue 370 with IV Contrast, Oral contrast used: None. FINDINGS: CTA HEAD: No evidence for acute intracranial hemorrhage or midline shift. Ventricular dilatation is proportiona l to degree of cerebral atrophy. Remote lacunar injuries are better detailed on noncontrasted head CT . The visualized portions of the internal carotid arteries, middle cerebral arteries, and anterior cere bral arteries are patent. Right posterior cerebral artery is patent and normal in appearance. Hypopla stic left posterior cerebral artery with posterior cerebral artery variant noted, otherwise is patent. The basilar and vertebral arteries are patent. Incidentally noted persistent carotid vertebrobasilar anastomosis with the left internal carotid artery (series [id number], image 27). CTA NECK: Right Carotid System: The common carotid artery and external carotid artery are patent. The carotid bifurcation demonstrate s no evidence of hemodynamically significant stenosis. The remaining portions of the internal carotid artery demonstrate normal size without significant narrowing. Left Carotid System: The common carotid artery and external carotid artery are patent. The carotid bifurcation demonstrate s no evidence of hemodynamically significant stenosis. The remaining portions of the internal carotid artery demonstrate normal size without significant narrowing. Vertebral arteries are patent without evidence hemodynamically significant stenosis. There is a three-vessel aortic arch. The origins of the great vessels are patent. Scattered calcified atherosclerosis of the aortic arch and proximal great vessels. No evidence of hemodynamically signif icant stenosis. Enlarged right thyroid lobe with heterogeneous appearance. IMPRESSION: 1. No evidence of dissection of the cervical internal carotid arteries or vertebral arteries or any e vidence of significant stenosis at the carotid bifurcations. 2. No evidence of intracranial high-grade stenosis or intracranial aneurysm. 3. Enlarged and heterogeneous right thyroid lobe, consider nonemergent evaluation with dedicated thyr oid ultrasound.
--- NOTE | 2023-05-23 19:34 | CT ---
EXAMINATION TYPE: CT brain wo con CT DLP: 1174.6 mGycm, Automated exposure control for dose reduction was used. DATE OF EXAM: 05/23/2023 6:52 PM COMPARISON: CTA head/neck 05/23/2023. CLINICAL INDICATION:Female, 72 years old with history of Neuro deficit, acute, stroke suspected, Neur o deficit, acute, stroke suspect, eval L Neck TECHNIQUE: Brain: Axial CT images of the brain were obtained with coronal and sagittal reformats created and rev iewed. Contrast used: None. Oral contrast used: None. FINDINGS: Brain: Extra-axial spaces: No abnormal extra-axial fluid collections. Ventricular system: Dilatation in proportion to cerebral atrophy. Cerebral parenchyma: Cerebral atrophy. No acute intraparenchymal hemorrhage or mass effect. Remote la cunar injury involving the left caudate, right basal ganglia and right thalamus. Scattered hypoattenu ating areas are seen within the white matter. Morin-white matter junction is otherwise within normal limits. Cerebellum: Unremarkable. Mass effect: No evidence of midline shift. Intracranial vasculature: Atherosclerotic calcifications of the intracranial vessels. Soft tissues: Normal. Calvarium/osseous structures: No depressed skull fracture. Paranasal sinuses and mastoid air cells: Clear. Mastoid air cells are Clear Visualized orbits: Scleral calcifications of the left globe. Lenses are surgically absent bilaterally . IMPRESSION: 1. No acute intracranial process. 2. Remote lacunar injuries along with nonspecific white matter changes likely secondary to chronic mi croangiopathy.
[2023-05-23] MEDS ORDERED: PNEUMONIA PROTOCOL UTILIZED 1 EACH MISC PO PRN (20:14)
[2023-05-23] MEDS ORDERED: AZITHROMYCIN 500 MG in SODIUM CHLORIDE 0.9% 250 ML IVPB STA (20:14)
[2023-05-23] MEDS ORDERED: ACETAMINOPHEN TAB 325 MG TAB PO PRN (22:57)
[2023-05-23] MEDS: CYCLOBENZAPRINE 5 MG TAB PO SCH (23:53)
[2023-05-23] MEDS: ATORVASTATIN 20 MG TAB PO SCH (23:53)
[2023-05-23] MEDS: PHENYTOIN SODIUM EXTENDED 100 MG CAP PO SCH (23:53)
[2023-05-23] MEDS: HYDROcodone/APAP 5-325MG 1 EACH TAB PO PRN (23:54)
[2023-05-24] MEDS ORDERED: ARTIFICIAL TEARS-HYPROMELLOSE DROPS 15 ML BTL BOTH EYES PRN
--- NOTE | 2023-05-24 07:59 | XR ---
EXAMINATION TYPE: XR chest 1V portable DATE OF EXAM: 05/24/2023 6:58 AM COMPARISON: Chest radiographs from 05/23/2023, CT Angio head neck 05/23/2023. TECHNIQUE: XR chest 1V portable Frontal view of the chest. CLINICAL INDICATION:Female, 72 years old with history of pneumonia; FINDINGS: Lungs/Pleura: Left lung base airspace opacities likely representing atelectasis given findings on [place] or CT. There is no evidence of pleural effusion, focal consolidation, or pneumothorax. Pulmonary vascularity: Unremarkable. Heart/mediastinum: Cardiomediastinal silhouette is unremarkable. Musculoskeletal: No acute osseous pathology. IMPRESSION: No acute cardiopulmonary disease/process. Left lower lung consolidation felt to be present atelectasi s given findings on CT Angio head neck which went low into the chest. No significant change from prio r.
[2023-05-24] MEDS ORDERED: TIMOLOL 0.5% OPHTH DROPS 5 ML BTL LEFT EYE SCH (08:00)
[2023-05-24] MEDS ORDERED: NON FORMULARY DRUG (Ubidecarenone [Co Q-10] 100 MG Capsule) PO SCH (08:00)
[2023-05-24] MEDS ORDERED: NON FORMULARY DRUG (Lactose-Reduced Food [Ensure Plus] 237 ML Ml) PO SCH (08:00)
[2023-05-24] MEDS ORDERED: MAGNESIUM HYDROXIDE 2,400 MG/30 ML CUP PO PRN (09:00)
[2023-05-24] MEDS ORDERED: DICLOFENAC SODIUM GEL 100 GM TUBE TOPICAL PRN (09:00)
[2023-05-24] MEDS ORDERED: METHYL SALICYLATE-MENTHOL OINT (3 OZ TUBE) TOPICAL PRN (09:00)
[2023-05-24] MEDS ORDERED: bisacodyL 10 MG SUPP RECTAL PRN (09:00)
[2023-05-24] MEDS: NON FORMULARY DRUG (Tofacitinib Citrate [Xeljanz Xr] 11 MG Tab.Er.24h) PO SCH (09:11)
[2023-05-24] MEDS: prednisoLONE ACETATE 1% OPHTH DROPS 5 ML BTL RIGHT EYE SCH (09:16)
[2023-05-24] MEDS: CHOLECALCIFEROL 25 MCG (1000 IU) TABLET PO SCH (09:16)
[2023-05-24] MEDS: FERROUS SULFATE 325 MG TAB PO SCH ×2 (09:16→17:15)
[2023-05-24] MEDS: DORZOLAMIDE HCL 2% DROPS 10 ML BTL LEFT EYE SCH ×4 (09:16→22:33)
[2023-05-24] MEDS: CLOPIDOGREL 75 MG TAB PO SCH (09:16)
[2023-05-24] MEDS: PANTOPRAZOLE 40 MG TABLET PO SCH (09:16)
[2023-05-24] MEDS: METOPROLOL SUCCINATE (ER) 25 MG TAB.ER.24H PO SCH (09:17)
[2023-05-24] MEDS: cycloSPORINE 0.05% OPHTH 0.4 ML DROPERETTE BOTH EYES SCH ×2 (09:17→18:06)
[2023-05-24] MEDS: FOLIC ACID 1 MG TAB PO SCH (09:17)
[2023-05-24] MEDS: LIDOCAINE 5% PATCH TOPICAL SCH (09:17)
[2023-05-24] MEDS: PHENYTOIN SODIUM EXTENDED 100 MG CAP PO SCH ×2 (09:18→17:16)
[2023-05-24] MEDS: VIT A,C & E-LUTEIN-MINERALS 1 EACH TAB PO SCH (09:18)
[2023-05-24] MEDS: CALCIUM CARBONATE 500 MG CHEWABLE PO SCH (11:44)
--- NOTE | 2023-05-24 12:42 | P.CNNES ---
History of Present Illness Consult date: 05/24/23 Requesting physician: Chris Soriano Reason for Consult: visual changes History of Present Illness: This is a 72-year-old woman with history of multiple strokes, left frontal bleed and did not require any intervention, significant visual disturbance of both eyes and according to the daughter patient is legally blind of both eyes, left lateral neck surgery due to an infection who presented to the emergency department because of left lateral neck pain and visual disturbance. Daughters at bedside and she provides a the history. It seems the patient the resides and the nursing facility and her symptoms began recently unsure exactly when but that she's been having pain over the left lateral neck region and there is con cern of infection. Seems that the patient had surgery in the past and was sent to [facility] and patient required IV antibiotics. She also have the recent worsening of visual disturbance and per the daughter she was told in the past the patient is legally blind but she is able to see objects TV which is somewhat this she is labeled with legal blindness. Otherwise patient denies of any new difficulty getting her words out, any new focal weakness, swallowing. Patient is on Plavix. Patient denies of any headache, any jaw pain. Some of the workup during his hospital visit consisted of: ESR is 37. CT of brain is reported as no acute intracranial process. Remote lacunar injuries along with nonspecific white matter changes likely secondary due to chronic microangiopathy. I personally reviewed the CT and that seems the patient had bilateral lacunar stroke on both as cerebral regions and the patient has more hydrocephalus over the left anterior lateral ventricle compared to the right with history of left frontal stroke in which she has left encephalomalacia. Again the patient has bilateral nasal cannula lacunar stroke. Right thalamus stroke as well as small left thalamus stroke more right caudate nucleus stroke. 2. On review of the head and neck was reported as no evidence of dissection cervical internal carotid artery or vertebral artery or any evidence of significant stenosis at the carotid bifurcation. No evidence of intracranial high-grade stenosis or intracranial aneurysm. A large and heterogeneous right thyroid lobe, consider nonemergent evaluation with dedicated thyroid ultrasound. Review of Systems Review of system: The 12 point system was reviewed and apparent positive and negative per HPI. Past Medical History Past Medical History: COPD, CVA/TIA, Deep Vein Thrombosis (DVT), Eye Disorder, GERD/Reflux, Osteoarthritis (OA), Rheumatoid Arthritis (RA), Thyroid Disorder Additional Past Medical History / Comment(s): Hx iron deficiency anemia. Epilepsy; Hx of hypokalemia. 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 Glaucoma. Peptic ulcer History of Any Multi-Drug Resistant Organisms: MRSA Date of last positivie culture/infection: 2013 MDRO Source:: Neck Past Surgical History: Hysterectomy, Joint Replacement, Orthopedic Surgery Additional Past Surgical History / Comment(s): RIGHT TOTAL KNEE; RIGHT FOOT HAMMER TOE REPAIR; RIGHT HAND TENDON REPAIR; BILATERAL CATARACT REMOVAL AND PROCEDURE FOR GLAUCOMA ON BOTH EYES; HYSTERECTOMY; RECTAL SURGERY Past Anesthesia/Blood Transfusion Reactions: Blood Transfusion Reaction Additional Past Anesthesia/Blood Transfusion Reaction / Comment(s): daughter indictaed the patient may have had a reaction to blood in 2013 Past Psychological History: No Psychological Hx Reported Smoking Status: Never smoker Past Alcohol Use History: Rare Past Drug Use History: None Reported Medications and Allergies Home Medications Medication Instructions Recorded Confirmed Type Clopidogrel Bisulfate [Plavix] 75 mg PO DAILY@0800 09/13/15 05/23/23 History Folic Acid 1 mg PO DAILY@0800 09/13/15 05/23/23 History Hydrocodone/Acetaminophen [[place] 1 tab PO TID PRN 09/13/15 05/23/23 History 5-325] Multivit-Min/FA/Lycopen/Lutein 1 tab PO DAILY@0800 09/13/15 05/23/23 History [Centrum Silver Tablet] Phenytoin Sodium Extended 100 mg PO DAILY@1700 09/13/15 05/23/23 History [Dilantin] Phenytoin Sodium Extended 200 mg PO DAILY@0800 09/13/15 05/23/23 History [Dilantin] prednisoLONE ACETATE 1% OPHTH 1 drop RIGHT EYE DAILY@0800 09/13/15 05/23/23 History [Pred Forte 1%] Atorvastatin [Lipitor] 20 mg PO HS@2100 03/31/18 05/23/23 History Brinzolamide [Azopt 1% Ophth Susp] 1 drop LEFT EYE BID@0800,1700 03/31/18 05/23/23 History Metoprolol Succinate (ER) [Toprol 12.5 mg PO DAILY@0800 03/31/18 05/23/23 History Xl] Na Phos,M-B/Na Phos,Di-Ba [Fleet 133 ml RECTAL DAILY PRN 03/31/18 05/23/23 History Adult] Propylene Glycol/Peg 400/Pf 1 drop BOTH EYES BID PRN 03/31/18 05/23/23 History [Systane 0.3-0.4% Eye Drops] Tofacitinib Citrate [Xeljanz Xr] 11 mg PO DAILY@0800 03/31/18 05/23/23 History Ubidecarenone [Co Q-10] 200 mg PO DAILY@0800 03/31/18 05/23/23 History bisacodyL [Dulcolax] 10 mg RECTAL DAILY PRN 03/31/18 05/23/23 History timoloL maleate [timoloL maleate 1 drop LEFT EYE DAILY@0800 03/31/18 05/23/23 History 0.5% Ophth Gel] Acetaminophen Tab [Tylenol] 650 mg PO Q4H PRN 02/04/23 05/23/23 History Calcium Carbonate 1,000 mg PO DAILY@1200 02/04/23 05/23/23 History Cholecalciferol [Vitamin D3 (25 25 mcg PO DAILY@0800 02/04/23 05/23/23 History Mcg = 1000 Iu)] Diclofenac Sodium Gel [Voltaren 2 gm TOPICAL QID PRN 02/04/23 05/23/23 History Gel] Ergocalciferol [Vitamin D2 (1250 1,250 mcg PO FR@1700 02/04/23 05/23/23 History Mcg = 00303 Iu)] Lactose-Reduced Food [Ensure Plus] 237 ml PO TID@0800,1200,1600 02/04/23 05/23/23 History Lidocaine Patch 4% 1 patch TOPICAL DAILY 02/04/23 05/23/23 History Magnesium Hydroxide [Milk of 7,200 mg PO DAILY PRN 02/04/23 05/23/23 History Magnesia Concentrate] Menthol [Biofreeze] 1 applic TOPICAL QID PRN 02/04/23 05/23/23 History cycloSPORINE 0.05% OPHTH SOLN 1 drop BOTH EYES BID@0800,1700 02/04/23 05/23/23 History [Restasis] Ciprofloxacin HCl [Cipro] 500 mg PO BID@0800,2100 05/23/23 05/23/23 History Cyclobenzaprine [Flexeril] 5 mg PO HS 05/23/23 05/23/23 History Ferrous Sulfate [Feosol] 325 mg PO BID@0800,1700 05/23/23 05/23/23 History Pantoprazole Sodium [Protonix] 40 mg PO DAILY@0800 05/23/23 05/23/23 History Allergies Allergy/AdvReac Type Severity Reaction Status Date / Time hydroxychloroquine Allergy Rash/Hives Verified 05/23/23 18:16 [From Plaquenil] Penicillins Allergy Rash/Hives Verified 05/23/23 18:16 Physical Examination - Vital Signs Vital Signs: Vital Signs Temp Pulse Pulse Resp BP BP Pulse Ox 05/24/23 06:57 97.5 F L 82 17 139/84 93 L 05/24/23 02:00 97.7 F 74 17 134/81 98 05/24/23 01:47 15 05/23/23 22:17 97.6 F 79 17 143/87 100 05/23/23 20:56 97.8 F 74 18 145/83 97 05/23/23 20:16 78 18 147/84 95 05/23/23 19:06 79 16 145/81 95 05/23/23 18:07 98.1 F 81 16 128/88 96 05/23/23 16:53 97.7 F 82 20 133/81 95 Intake and Output 05/23/23 05/24/23 05/24/23 22:59 06:59 14:59 Output Total 650 Balance -650 Output: Urine 650 Other: Voiding Method Diaper External Catheter External Catheter Weight 63.503 kg GENERAL: The patient is lying in bed and is not in acute distress. HENT: Hard to palpation over the lateral aspect of the neck region and tender to touch. Musculoskeletal: Significant arthritis changes of hands, feet NEUROLOGICAL: Limited because of her cooperation. Higher mental function: The patient is awake, alert, oriented to self, time. Patient is following simple commands. No aphasia and no neglect. Cranial nerves: The pupils are round, equal and reactive to light. Visual becker is sees shadows on both eyes. Facial sensation is normal to touch throughout. The facial strength is normal throughout. Hearing is moderately to severely decreased bilaterally to hand rub. Tongue is midline and moved [id number] without any difficulty. No dysarthria is noted. Shoulder shrug is normal bilaterally. Motor: The strength is hard to assess individual muscles. But is lifting all extremities above gravity. Normal tone and bulk. Cerebellum: Normal finger to nose bilaterally. Sensation: Sensation is normal to touch throughout. Reflexes (right/left): Could not assess because of cooperation. Plantars are mute bilaterally. Results - Laboratory Findings CBC and BMP: 05/23/23 17:07 05/24/23 12:43 Abnormal Lab Findings: Abnormal Labs 05/23/23 05/23/23 05/23/23 17:07 17:07 17:07 MCV 75.3 L MCH 23.3 L MCHC 30.9 L RDW 27.6 H Lymphocytes # 0.7 L ESR 37 H Sodium 135 L Creatinine 0.48 L Alkaline Phosphatase 157 H Assessment and Plan Assessment: This is a 72-year-old woman who presented because of left lateral neck pain concern for infection as well as worsening of visual changes. Acute visual changes: Rule out acute subacute ischemia ?Giant cell arteritis (ESR is 37 and not significantly elevated. Does not have headache, jaw claudication). At baseline patient has poor vision but is able to see objects but currently only sees shadows Left lateral neck pain and it's tender to touch as well as is hard to palpation: Rule out underlying infection History of multiple strokes most of the stroke symptoms due to a chronic small vessel disease also had a stroke in the past in which she had left frontal bleed and did not require any surgical intervention and unknown cause according to the daughter History of significant visual disturbance the patient had a history of cataract glaucoma has surgeries History of epilepsy History of significant arthritis History of DVT Hypothyroidism History of iron deficiency anemia History of peptic ulcer disease Plan: I ordered CT of the cervical spine with and without to rule out any enhancement or changes on the cervical. I also ordered MRI of the brain to rule out any acute or subacute ischemia Ordered TSH, vitamin B-12, folate, HbA1c. Ordered lipid panel. Patient ESR is not significantly elevated and if patient does not have a stroke there is a concern of questionable temporal arteritis. I consulted the ophthalmology team (Dr. Faith). I will hold off starting steroids until ophthalmology evaluate her especially that since the patient has significant the ophthalmology call history such as glaucoma and the cataracts and had there is severe visual disturbance. For her history of epilepsy patient is resumed on her home dose of Dilantin 300 mg daily. I'll gets a Dilantin level on her ENT is consulted for left neck infection. Patient is on Plavix with home dose 75 mg daily. Also patient is on Lipitor 20 mg daily at bedtime We'll defer the rest of the medical management to the primary team The plan was discussed with the patient's daughter was at bedside as well as the her nurse. Thank you for the consultation. UPDATE: Dr. Faith (Ophthamologist) evaluated her and he did not feel she had giant cell arteritis. He felt no vision out of left eye but right is 20/30 without good field. He felt vision issues due to glaucoma. Time with Patient: Greater than 30
[2023-05-24 13:35] LABS: African American GFR (CKD) >90 (>60 ml/min/1.73 sqM); Blood Urea Nitrogen 12 mg/dL (7-17); Non-African American GFR(CKD) >90 (>60 ml/min/1.73 sqM)
[2023-05-24 13:47] LABS: Phenytoin (Dilantin) 17.7 ug/mL
--- NOTE | 2023-05-24 14:39 | P.GSCN ---
History of Present Illness Consult date: 05/24/23 Reason for Consult: Swollen tender left neck swelling Requesting physician: Davon Wooten History of present illness: This is a 72-year-old female who over the last 2 days developed some swelling below and in front of her left ear. It developed relatively quickly and is quite tender. She's developed some other neurologic issues which appear to be unrelated to this left neck swelling. She tells me that when she touches this lump is quite swollen and tender. It seems to be stable. Denies any other symptomatology. Review of Systems - Constitutional Reports as per HPI - EENT Ears, nose, mouth and throat: Reports as per HPI - Cardiovascular Reports as per HPI - Respiratory Reports as per HPI - Gastrointestinal Reports as per HPI - Genitourinary Genitourinary: Reports as per HPI - Musculoskeletal Reports as per HPI - Integumentary Reports as per HPI - Neurological Reports as per HPI - Psychiatric Reports as per HPI Past Medical History Past Medical History: COPD, CVA/TIA, Deep Vein Thrombosis (DVT), Eye Disorder, GERD/Reflux, Osteoarthritis (OA), Rheumatoid Arthritis (RA), Thyroid Disorder Additional Past Medical History / Comment(s): Hx iron deficiency anemia. Epilepsy; Hx of hypokalemia. 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 Glaucoma. Peptic ulcer History of Any Multi-Drug Resistant Organisms: MRSA Year Discovered:: 2013 MDRO Source:: Neck Past Surgical History: Hysterectomy, Joint Replacement, Orthopedic Surgery Additional Past Surgical History / Comment(s): RIGHT TOTAL KNEE; RIGHT FOOT HAMMER TOE REPAIR; RIGHT HAND TENDON REPAIR; BILATERAL CATARACT REMOVAL AND PROCEDURE FOR GLAUCOMA ON BOTH EYES; HYSTERECTOMY; RECTAL SURGERY Past Anesthesia/Blood Transfusion Reactions: Blood Transfusion Reaction Additional Past Anesthesia/Blood Transfusion Reaction / Comm: daughter indictaed the patient may have had a reaction to blood in 2013 Past Psychological History: No Psychological Hx Reported Smoking Status: Never smoker Past Alcohol Use History: Rare Past Drug Use History: None Reported Medications and Allergies Home Medications Medication Instructions Recorded Confirmed Type Clopidogrel Bisulfate [Plavix] 75 mg PO DAILY@0800 09/13/15 05/23/23 History Folic Acid 1 mg PO DAILY@0800 09/13/15 05/23/23 History Hydrocodone/Acetaminophen [[place] 1 tab PO TID PRN 09/13/15 05/23/23 History 5-325] Multivit-Min/FA/Lycopen/Lutein 1 tab PO DAILY@0800 09/13/15 05/23/23 History [Centrum Silver Tablet] Phenytoin Sodium Extended 100 mg PO DAILY@1700 09/13/15 05/23/23 History [Dilantin] Phenytoin Sodium Extended 200 mg PO DAILY@0800 09/13/15 05/23/23 History [Dilantin] prednisoLONE ACETATE 1% OPHTH 1 drop RIGHT EYE DAILY@0800 09/13/15 05/23/23 History [Pred Forte 1%] Atorvastatin [Lipitor] 20 mg PO HS@2100 03/31/18 05/23/23 History Brinzolamide [Azopt 1% Ophth Susp] 1 drop LEFT EYE BID@0800,1700 03/31/18 05/23/23 History Metoprolol Succinate (ER) [Toprol 12.5 mg PO DAILY@0800 03/31/18 05/23/23 History Xl] Na Phos,M-B/Na Phos,Di-Ba [Fleet 133 ml RECTAL DAILY PRN 03/31/18 05/23/23 History Adult] Propylene Glycol/Peg 400/Pf 1 drop BOTH EYES BID PRN 03/31/18 05/23/23 History [Systane 0.3-0.4% Eye Drops] Tofacitinib Citrate [Xeljanz Xr] 11 mg PO DAILY@0800 03/31/18 05/23/23 History Ubidecarenone [Co Q-10] 200 mg PO DAILY@0800 03/31/18 05/23/23 History bisacodyL [Dulcolax] 10 mg RECTAL DAILY PRN 03/31/18 05/23/23 History timoloL maleate [timoloL maleate 1 drop LEFT EYE DAILY@0800 03/31/18 05/23/23 History 0.5% Ophth Gel] Acetaminophen Tab [Tylenol] 650 mg PO Q4H PRN 02/04/23 05/23/23 History Calcium Carbonate 1,000 mg PO DAILY@1200 02/04/23 05/23/23 History Cholecalciferol [Vitamin D3 (25 25 mcg PO DAILY@0800 02/04/23 05/23/23 History Mcg = 1000 Iu)] Diclofenac Sodium Gel [Voltaren 2 gm TOPICAL QID PRN 02/04/23 05/23/23 History Gel] Ergocalciferol [Vitamin D2 (1250 1,250 mcg PO FR@1700 02/04/23 05/23/23 History Mcg = 80470 Iu)] Lactose-Reduced Food [Ensure Plus] 237 ml PO TID@0800,1200,1600 02/04/23 05/23/23 History Lidocaine Patch 4% 1 patch TOPICAL DAILY 02/04/23 05/23/23 History Magnesium Hydroxide [Milk of 7,200 mg PO DAILY PRN 02/04/23 05/23/23 History Magnesia Concentrate] Menthol [Biofreeze] 1 applic TOPICAL QID PRN 02/04/23 05/23/23 History cycloSPORINE 0.05% OPHTH SOLN 1 drop BOTH EYES BID@0800,1700 02/04/23 05/23/23 History [Restasis] Ciprofloxacin HCl [Cipro] 500 mg PO BID@0800,2100 05/23/23 05/23/23 History Cyclobenzaprine [Flexeril] 5 mg PO HS 05/23/23 05/23/23 History Ferrous Sulfate [Feosol] 325 mg PO BID@0800,1700 05/23/23 05/23/23 History Pantoprazole Sodium [Protonix] 40 mg PO DAILY@0800 05/23/23 05/23/23 History Allergies Allergy/AdvReac Type Severity Reaction Status Date / Time hydroxychloroquine Allergy Rash/Hives Verified 05/23/23 18:16 [From Plaquenil] Penicillins Allergy Rash/Hives Verified 05/23/23 18:16 Surgical - Exam Osteopathic Statement: *. No significant issues noted on an osteopathic structural exam other than those noted in the History and Physical/Consult. Vital Signs Temp Pulse Resp BP Pulse Ox 97.7 F 82 20 133/81 95 05/23/23 16:53 05/23/23 16:53 05/23/23 16:53 05/23/23 16:53 05/23/23 16:53 - General moderate pain, chronically ill - Eyes PERRL, normal ocular movement - ENT Head is normocephalic, the face is symmetric, there is no tenderness to the sinu ses are mastoids, auricles are well-formed canals are clear. Mouth and throat unremarkable other than some purulent material coming from the left Stensen's duct. Teeth are in poor repair. Neck demonstrates swelling over the left parotid quite swollen and tender no other issues noted - Respiratory normal expansion - Neurologic normal sensation - Psychiatric oriented to time, oriented to person, oriented to place Results - Labs 05/23/23 17:05/24/23 12:43 Abnormal Lab Results - Last 24 Hours (Table) 05/23/23 05/23/23 05/23/23 Range/Units 17: 17: 17: MCV 75.3 L (80.0-100.0) fL MCH 23.3 L (25.0-35.0) pg MCHC 30.9 L (31.0-37.0) g/dL RDW 27.6 H (11.5-15.5) % Lymphocytes # 0.7 L (1.0-4.8) k/uL ESR 37 H (0-20) mm/hr Sodium 135 L (137-145) mmol/L Creatinine 0.48 L (0.52-1.04) mg/dL Alkaline Phosphatase 157 H (38-126) U/L 05/24/23 Range/Units 12:43 MCV (80.0-100.0) fL MCH (25.0-35.0) pg MCHC (31.0-37.0) g/dL RDW (11.5-15.5) % Lymphocytes # (1.0-4.8) k/uL ESR (0-20) mm/hr Sodium (137-145) mmol/L Creatinine 0.36 L (0.52-1.04) mg/dL Alkaline Phosphatase (38-126) U/L Diabetes panel 05/23/23 05/24/23 05/24/23 Range/Units 17: 12:43 12:43 Sodium 135 L (137-145) mmol/L Potassium 4.4 (3.5-5.1) mmol/L Chloride 101 (98-107) mmol/L Carbon Dioxide 27 (22-30) mmol/L BUN 16 12 (7-17) mg/dL Creatinine 0.48 L 0.36 L (0.52-1.04) mg/dL Glucose 93 (74-99) mg/dL Calcium 9.0 (8.4-10.2) mg/dL AST 29 (14-36) U/L ALT 22 (4-34) U/L Alkaline Phosphatase 157 H (38-126) U/L Total Protein 7.4 (6.3-8.2) g/dL Albumin 3.8 (3.5-5.0) g/dL Triglycerides Cancelled HDL Cholesterol Cancelled Thyroid panel 05/24/23 Range/Units 12:43 TSH 1.770 (0.465-4.680) mIU/L Calcium panel 05/23/23 Range/Units 17:07 Calcium 9.0 (8.4-10.2) mg/dL Albumin 3.8 (3.5-5.0) g/dL Pituitary panel 05/23/23 05/24/23 05/24/23 Range/Units 17:07 12:43 12:43 Sodium 135 L (137-145) mmol/L Potassium 4.4 (3.5-5.1) mmol/L Chloride 101 (98-107) mmol/L Carbon Dioxide 27 (22-30) mmol/L BUN 16 12 (7-17) mg/dL Creatinine 0.48 L 0.36 L (0.52-1.04) mg/dL Glucose 93 (74-99) mg/dL Calcium 9.0 (8.4-10.2) mg/dL TSH 1.770 (0.465-4.680) mIU/L Adrenal panel 05/23/23 05/24/23 Range/Units 17:07 12:43 Sodium 135 L (137-145) mmol/L Potassium 4.4 (3.5-5.1) mmol/L Chloride 101 (98-107) mmol/L Carbon Dioxide 27 (22-30) mmol/L BUN 16 12 (7-17) mg/dL Creatinine 0.48 L 0.36 L (0.52-1.04) mg/dL Glucose 93 (74-99) mg/dL Calcium 9.0 (8.4-10.2) mg/dL Total Bilirubin 0.2 (0.2-1.3) mg/dL AST 29 (14-36) U/L ALT 22 (4-34) U/L Alkaline Phosphatase 157 H (38-126) U/L Total Protein 7.4 (6.3-8.2) g/dL Albumin 3.8 (3.5-5.0) g/dL Assessment and Plan (1) Parotitis, acute Current Visit: Yes Status: Acute Code(s): K11.21 - ACUTE SIALOADENITIS SNOMED Code(s): 40194232 Plan: This patient has a acute left parotid infection. The most likely causative organism staph aureus. I recommended infectious disease consultation for antibiotic choice. If not improved CAT scan of the neck would be recommended to rule out a parotid stone. Initial empiric Miotics are indicated. She simu ltaneously undergoing neurologic consultation for some visual changes or neurologic symptoms. I will see the patient back in the office if not improved after discharge. If you he my services further, please do not hesitate to reconsult. Thank you Time with Patient: Greater than 30
[2023-05-24] MEDS ORDERED: PROPARACAINE 0.5% OPHTH DROPS 15 ML BTL BOTH EYES STA (14:44)
[2023-05-24] MEDS ORDERED: TROPICAMIDE 1% OPHTH DROPS 2 ML BTL BOTH EYES ONE (14:44)
[2023-05-24] MEDS ORDERED: PHENYLEPHRINE 2.5% OPHTH DRP 2ML BOTH EYES ONE (14:45)
--- NOTE | 2023-05-24 16:35 | P.HPIM ---
History of Present Illness H&P Date: 05/24/23 Chief Complaint: Left neck swelling with tenderness This is a 78-year-old female resident of [facility], past medical history significant for multiple CVAs-left frontal, DVT, glaucoma, legally blind, gastroesophageal reflux disease, rheumatoid arthritis, CAD, hypothyroidism, epi lepsy, iron deficiency anemia, peptic ulcer, previous infection of left neck with left lateral neck surgery and multiple other medical issues admitted with left neck tenderness and edema, since May 21 and continued worsening in addition to "visual changes"in a patient with history of legal blindness.daughter reports patient can normally identify her from the doorway and was not able to do so in the ER .Denies headache.brain CT reported no acute intracranial process, remote left inner injuries along with nonspecific white matter changes likely secondary to chronic microangiopathy.CTA reported no evidence of dissection of the cervical internal carotid arteries are vertebral arteries or any evidence of significant stenosis at the carotid bifurcations, no evidence of intracranial high-grade stenosis or intracranial aneurysm, enlarged and heterogenous right thyroid lobe.Chest x-ray reported left lower lobe airspace opacity in a patient with history of rheumatoid lung. Afebrile normal WBC. ESR 37. Urine legionella AG negative. Denies cough, congestion or shortness of breath. Maintaining O2 sats in the 90s on room air. Denies chest pain, palpitations. Review of Systems ROS Statement: Those systems with pertinent positive or pertinent negative responses have been documented in the HPI. ROS Other: All systems not noted in ROS Statement are negative. Past Medical History Past Medical History: COPD, CVA/TIA, Deep Vein Thrombosis (DVT), Eye Disorder, GERD/Reflux, Osteoarthritis (OA), Rheumatoid Arthritis (RA), Thyroid Disorder Additional Past Medical History / Comment(s): Hx iron deficiency anemia. Epilepsy; Hx of hypokalemia. 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 Glaucoma. Peptic ulcer History of Any Multi-Drug Resistant Organisms: MRSA Date of last positivie culture/infection: 2013 MDRO Source:: Neck Past Surgical History: Hysterectomy, Joint Replacement, Orthopedic Surgery Additional Past Surgical History / Comment(s): RIGHT TOTAL KNEE; RIGHT FOOT HAMMER TOE REPAIR; RIGHT HAND TENDON REPAIR; BILATERAL CATARACT REMOVAL AND PROCEDURE FOR GLAUCOMA ON BOTH EYES; HYSTERECTOMY; RECTAL SURGERY Past Anesthesia/Blood Transfusion Reactions: Blood Transfusion Reaction Additional Past Anesthesia/Blood Transfusion Reaction / Comment(s): daughter indictaed the patient may have had a reaction to blood in 2013 Past Psychological History: No Psychological Hx Reported Smoking Status: Never smoker Past Alcohol Use History: Rare Past Drug Use History: None Reported Medications and Allergies Home Medications Medication Instructions Recorded Confirmed Type Clopidogrel Bisulfate [Plavix] 75 mg PO DAILY@0800 09/13/15 05/23/23 History Folic Acid 1 mg PO DAILY@0800 09/13/15 05/23/23 History Hydrocodone/Acetaminophen [[place] 1 tab PO TID PRN 09/13/15 05/23/23 History 5-325] Multivit-Min/FA/Lycopen/Lutein 1 tab PO DAILY@0800 09/13/15 05/23/23 History [Centrum Silver Tablet] Phenytoin Sodium Extended 100 mg PO DAILY@1700 09/13/15 05/23/23 History [Dilantin] Phenytoin Sodium Extended 200 mg PO DAILY@0800 09/13/15 05/23/23 History [Dilantin] prednisoLONE ACETATE 1% OPHTH 1 drop RIGHT EYE DAILY@0800 09/13/15 05/23/23 History [Pred Forte 1%] Atorvastatin [Lipitor] 20 mg PO HS@2100 03/31/18 05/23/23 History Brinzolamide [Azopt 1% Ophth Susp] 1 drop LEFT EYE BID@0800,1700 03/31/18 05/23/23 History Metoprolol Succinate (ER) [Toprol 12.5 mg PO DAILY@0800 03/31/18 05/23/23 History Xl] Na Phos,M-B/Na Phos,Di-Ba [Fleet 133 ml RECTAL DAILY PRN 03/31/18 05/23/23 History Adult] Propylene Glycol/Peg 400/Pf 1 drop BOTH EYES BID PRN 03/31/18 05/23/23 History [Systane 0.3-0.4% Eye Drops] Tofacitinib Citrate [Xeljanz Xr] 11 mg PO DAILY@0800 03/31/18 05/23/23 History Ubidecarenone [Co Q-10] 200 mg PO DAILY@0800 03/31/18 05/23/23 History bisacodyL [Dulcolax] 10 mg RECTAL DAILY PRN 03/31/18 05/23/23 History timoloL maleate [timoloL maleate 1 drop LEFT EYE DAILY@0800 03/31/18 05/23/23 History 0.5% Ophth Gel] Acetaminophen Tab [Tylenol] 650 mg PO Q4H PRN 02/04/23 05/23/23 History Calcium Carbonate 1,000 mg PO DAILY@1200 02/04/23 05/23/23 History Cholecalciferol [Vitamin D3 (25 25 mcg PO DAILY@0800 02/04/23 05/23/23 History Mcg = 1000 Iu)] Diclofenac Sodium Gel [Voltaren 2 gm TOPICAL QID PRN 02/04/23 05/23/23 History Gel] Ergocalciferol [Vitamin D2 (1250 1,250 mcg PO FR@1700 02/04/23 05/23/23 History Mcg = 38648 Iu)] Lactose-Reduced Food [Ensure Plus] 237 ml PO TID@0800,1200,1600 02/04/23 05/23/23 History Lidocaine Patch 4% 1 patch TOPICAL DAILY 02/04/23 05/23/23 History Magnesium Hydroxide [Milk of 7,200 mg PO DAILY PRN 02/04/23 05/23/23 History Magnesia Concentrate] Menthol [Biofreeze] 1 applic TOPICAL QID PRN 02/04/23 05/23/23 History cycloSPORINE 0.05% OPHTH SOLN 1 drop BOTH EYES BID@0800,1700 02/04/23 05/23/23 History [Restasis] Ciprofloxacin HCl [Cipro] 500 mg PO BID@0800,2100 05/23/23 05/23/23 History Cyclobenzaprine [Flexeril] 5 mg PO HS 05/23/23 05/23/23 History Ferrous Sulfate [Feosol] 325 mg PO BID@0800,1700 05/23/23 05/23/23 History Pantoprazole Sodium [Protonix] 40 mg PO DAILY@0800 05/23/23 05/23/23 History Allergies Allergy/AdvReac Type Severity Reaction Status Date / Time hydroxychloroquine Allergy Rash/Hives Verified 05/23/23 18:16 [From Plaquenil] Penicillins Allergy Rash/Hives Verified 05/23/23 18:16 Physical Exam Vitals: Vital Signs Temp Pulse Pulse Resp BP BP Pulse Ox 05/24/23 06:57 97.5 F L 82 17 139/84 93 L 05/24/23 02:00 97.7 F 74 17 134/81 98 05/24/23 01:47 15 05/23/23 22:17 97.6 F 79 17 143/87 100 05/23/23 20:56 97.8 F 74 18 145/83 97 05/23/23 20:16 78 18 147/84 95 05/23/23 19:06 79 16 145/81 95 05/23/23 18:07 98.1 F 81 16 128/88 96 05/23/23 16:53 97.7 F 82 20 133/81 95 Intake and Output 05/23/23 05/24/23 05/24/23 22:59 06:59 14:59 Output Total 650 Balance -650 Output: Urine 650 Other: Voiding Method Diaper External Catheter External Catheter Weight 63.503 kg PHYSICAL EXAM: VITAL SIGNS: As above GENERAL: Sitting up in bed, no acute distress. Poor dentition.[place] HEENT: Normocephalic, atraumatic Conjunctivae normal. Legally blind-sees shadows. Left parotid edema, tenderness. NECK: Supple, No JVD. No thyroid enlargement. Previous surgical scar present left lateral neck. CARDIOVASCULAR: S1, S2 regular. No murmur RESPIRATION: Breath sounds diminished in the bases. No rhonchi or crackles. No bronchial breathing. ABDOMEN: Soft, nondistended, nontender . No guarding. no masses palpable.+BS. LEGS: No edema. no swelling PSYCHIATRY: Alert and oriented X3, mood and affect normal. NERVOUS SYSTEM: Cranial N 2-12 grossly normal. No focal deficits. Strength and sensation grossly intact. Skin: Warm and dry, no rash noted. Results CBC & Chem 7: 05/23/23 17:07 05/24/23 12:43 Labs: Abnormal Lab Results - Last 24 Hours (Table) 05/23/23 05/23/23 05/23/23 Range/Units 17:07 17:07 17:07 MCV 75.3 L (80.0-100.0) fL MCH 23.3 L (25.0-35.0) pg MCHC 30.9 L (31.0-37.0) g/dL RDW 27.6 H (11.5-15.5) % Lymphocytes # 0.7 L (1.0-4.8) k/uL ESR 37 H (0-20) mm/hr Sodium 135 L (137-145) mmol/L Creatinine 0.48 L (0.52-1.04) mg/dL Alkaline Phosphatase 157 H (38-126) U/L Thrombosis Risk Factor Assmnt - Choose All That Apply Any of the Below Risk Factors Present?: No Other Risk Factors: Yes Each Risk Factor Represents 2 Points: Age 61-74 years Other congenital or acquired thrombophilia - If yes, enter type in comment: No Thrombosis Risk Factor Assessment Total Risk Factor Score: 2 Thrombosis Risk Factor Assessment Level: Low Risk Assessment and Plan Assessment: Acute left lateral neck pain with edema and tenderness , possible acute left Parotitis Acute visual changes in a patient with cataracts, glaucoma ,Legally blind with complaints of worsening vision. Concern for temporal arteritis, possible CVA as per neurology. History of multiple CVAs, left frontal bleed not requiring surgical intervention per daughter Rheumatoid lung, history of Enlarged right thyroid lobe, follows with Dr. Seo, ENT ,outpatient History of epilepsy Rheumatoid arthritis History of DVT Iron deficiency anemia, history of Peptic ulcer disease Plan: Continue on current medication regime ,monitoring and symptomatic treatment. IV antibiotics. Multiple consults;infectious disease, neurology, ENT, ophthalmology pending. Neurology workup in progress. Dilantin level pending. Prognosis guarded given multiple complex issues. The impression and plan of care has been dictated as directed. : I performed a history and examination of this patient, discussed the same with the dictator. I agree with the dictator's note ,documented as a scribe. Any additional findings or plans will be noted.
[2023-05-24] MEDS ORDERED: ERGOCALCIFEROL 1,250 MCG (50,000 IU) CAPSULE PO SCH (17:00)
[2023-05-24] MEDS: CLINDAMYCIN 600 MG in DEXTROSE 5% IN WATER 50 ML IVPB SCH ×2 (17:29)
[2023-05-24] MEDS ORDERED: AZITHROMYCIN 500 MG TAB PO SCH (18:00)
--- NOTE | 2023-05-24 18:11 | P.CON ---
Consult Note - . Consult date: 05/24/23 Assessment/Plan:: This is a 72 y/o female who was admitted for left neck discomfort. She is stating that the vision in her left eye has changed. She admits to a vague headache, but mostly referenced the left side of her neck. Additionally, there is a concern of possible GCA which may have affected the sight. Further discussion with the patient who was not good on her history did relate that she's had bilateral cataract surgery at some distant time in the past. Additionally, she has developed glaucoma and has undergone trabeculectomy surgery once on the right, and twice on the left. Vision has admittedly been poor for some time, but she feels the vision is worse since the onset of left neck pain. She is currently on glaucoma medications of dorzolamide 2% twice daily and timolol 0.5% once daily for her left eye only. Additionally, she is on prednisolone acetate 1% once daily. She is unable to relate dates of surgical interventions or when she last saw Dr. Mauri Gao. Va: w/ correction 20/30+2 OD, LP w/Projection OS Pupils: moderately dilated OS>OD - prior to mydriatic agents, poorly reactive to light and sluggish External: No tenderness to temporal arteries, fair to good pulses bilaterally, even through area of parotitis CF: severely restricted field on right, unobtainable on OS EOM: left XT, poor ability to follow light for assessment of ductions IOP: 11 mm Hg OD, 24 mm Hg OS via Tonopen @ 1500 hrs Conjunctiva: blebs appreciated OU, moderately cystic, OS>OD Cornea: clear OU AC: D&Q OU Iris: brown, post surgical, round Dilated: 2.5% Neosynephrine & 1% tropicamide @1510 (WILL REMAIN DILATED TO 6-8 HOURS!!!!) Lens: PC IOL, OU with moderate to advanced posterior capsular opacification Vitreous: clear OU Optic nerve: tough view (due to opacification), well-defined cupped out, white. Posterior Pole: grossly normal OU, no overt evidence of AMD A: 1) severe vision loss, probably at sometime in the past, though there could have been change on the left, but patient history is suspect. The vision is loss most likely due to severe glaucoma, especially in light of having undergone advanced glaucoma surgery with trabeculectomy. Intraocular pressure is higher than desired in a severe situation as this, and will recommend a change, for the time of hospitalization of a change in topical medications for that eye. Overall, however, I feel that despite the long-standing poor vision, that I find no evidence of giant cell arteritis and do not feel the need to pursue this workup, at this time. P: From ophthalmology, suggest a change in medications, and return to Dr. Mauri Gao upon discharge to reevaluate ongoing therapy. I will increase the glaucoma treatment for the left eye while she remains in the hospital. Thank you for this consultation on this complex patient.
--- NOTE | 2023-05-24 18:36 | P.CONS ---
History of Present Illness - Reason for Consult Consult date: 05/24/23 - History of Present Illness Patient is a 72-year-old female with a past medical history significant for COPD CVA TIA reflux rheumatoid arthritis and retirement resident the patient has been brought into the hospital for evaluation of left neck swelling and redness apparently started on May 21 and has continued get worse patient denies any history of any trauma to the area describing the pain to be more of a sharp and tender to touch without any radiation no nausea vomiting abdominal pain or diarrhea and no high-grade fever on presentation the hospital the patient was afebrile and no fever has been recorded subsequently patient did have a normal white count kidney function was normal patient did have some neurological symptoms as well and has been evaluated by neurology services, patient did have a CT of the brain that was negative for any bleed patient also have a angiographic CT no evidence of any stenosis ENT has seen the patient for the left parotid swelling recommending ID evaluation for the antibiotics, patient did have a previous history of left neck abscess from an IV however that has been a while ago and not recently Past Medical History Past Medical History: COPD, CVA/TIA, Deep Vein Thrombosis (DVT), Eye Disorder, GERD/Reflux, Osteoarthritis (OA), Rheumatoid Arthritis (RA), Thyroid Disorder Additional Past Medical History / Comment(s): Hx iron deficiency anemia. Epilepsy; Hx of hypokalemia. 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 Glaucoma. Peptic ulcer History of Any Multi-Drug Resistant Organisms: MRSA Year Discovered:: 2013 MDRO Source:: Neck Past Surgical History: Hysterectomy, Joint Replacement, Orthopedic Surgery Additional Past Surgical History / Comment(s): RIGHT TOTAL KNEE; RIGHT FOOT HAMMER TOE REPAIR; RIGHT HAND TENDON REPAIR; BILATERAL CATARACT REMOVAL AND AL OCEDURE FOR GLAUCOMA ON BOTH EYES; HYSTERECTOMY; RECTAL SURGERY Past Anesthesia/Blood Transfusion Reactions: Blood Transfusion Reaction Additional Past Anesthesia/Blood Transfusion Reaction / Comm: daughter indictaed the patient may have had a reaction to blood in 2013 Past Psychological History: No Psychological Hx Reported Smoking Status: Never smoker Past Alcohol Use History: Rare Past Drug Use History: None Reported Medications and Allergies Home Medications Medication Instructions Recorded Confirmed Type Clopidogrel Bisulfate [Plavix] 75 mg PO DAILY@0800 09/13/15 05/23/23 History Folic Acid 1 mg PO DAILY@0800 09/13/15 05/23/23 History Hydrocodone/Acetaminophen [[place] 1 tab PO TID PRN 09/13/15 05/23/23 History 5-325] Multivit-Min/FA/Lycopen/Lutein 1 tab PO DAILY@0800 09/13/15 05/23/23 History [Centrum Silver Tablet] Phenytoin Sodium Extended 100 mg PO DAILY@1700 09/13/15 05/23/23 History [Dilantin] Phenytoin Sodium Extended 200 mg PO DAILY@0800 09/13/15 05/23/23 History [Dilantin] prednisoLONE ACETATE 1% OPHTH 1 drop RIGHT EYE DAILY@0800 09/13/15 05/23/23 History [Pred Forte 1%] Atorvastatin [Lipitor] 20 mg PO HS@2100 03/31/18 05/23/23 History Brinzolamide [Azopt 1% Ophth Susp] 1 drop LEFT EYE BID@0800,1700 03/31/18 05/23/23 History Metoprolol Succinate (ER) [Toprol 12.5 mg PO DAILY@0800 03/31/18 05/23/23 History Xl] Na Phos,M-B/Na Phos,Di-Ba [Fleet 133 ml RECTAL DAILY PRN 03/31/18 05/23/23 History Adult] Propylene Glycol/Peg 400/Pf 1 drop BOTH EYES BID PRN 03/31/18 05/23/23 History [Systane 0.3-0.4% Eye Drops] Tofacitinib Citrate [Xeljanz Xr] 11 mg PO DAILY@0800 03/31/18 05/23/23 History Ubidecarenone [Co Q-10] 200 mg PO DAILY@0800 03/31/18 05/23/23 History bisacodyL [Dulcolax] 10 mg RECTAL DAILY PRN 03/31/18 05/23/23 History timoloL maleate [timoloL maleate 1 drop LEFT EYE DAILY@0800 03/31/18 05/23/23 History 0.5% Ophth Gel] Acetaminophen Tab [Tylenol] 650 mg PO Q4H PRN 02/04/23 05/23/23 History Calcium Carbonate 1,000 mg PO DAILY@1200 02/04/23 05/23/23 History Cholecalciferol [Vitamin D3 (25 25 mcg PO DAILY@0800 02/04/23 05/23/23 History Mcg = 1000 Iu)] Diclofenac Sodium Gel [Voltaren 2 gm TOPICAL QID PRN 02/04/23 05/23/23 History Gel] Ergocalciferol [Vitamin D2 (1250 1,250 mcg PO FR@1700 02/04/23 05/23/23 History Mcg = 07490 Iu)] Lactose-Reduced Food [Ensure Plus] 237 ml PO TID@0800,1200,1600 02/04/23 05/23/23 History Lidocaine Patch 4% 1 patch TOPICAL DAILY 02/04/23 05/23/23 History Magnesium Hydroxide [Milk of 7,200 mg PO DAILY PRN 02/04/23 05/23/23 History Magnesia Concentrate] Menthol [Biofreeze] 1 applic TOPICAL QID PRN 02/04/23 05/23/23 History cycloSPORINE 0.05% OPHTH SOLN 1 drop BOTH EYES BID@0800,1700 02/04/23 05/23/23 History [Restasis] Ciprofloxacin HCl [Cipro] 500 mg PO BID@0800,2100 05/23/23 05/23/23 History Cyclobenzaprine [Flexeril] 5 mg PO HS 05/23/23 05/23/23 History Ferrous Sulfate [Feosol] 325 mg PO BID@0800,1700 05/23/23 05/23/23 History Pantoprazole Sodium [Protonix] 40 mg PO DAILY@0800 05/23/23 05/23/23 History Allergies Allergy/AdvReac Type Severity Reaction Status Date / Time hydroxychloroquine Allergy Rash/Hives Verified 05/23/23 18:16 [From Plaquenil] Penicillins Allergy Rash/Hives Verified 05/23/23 18:16 Physical Exam Vitals: Vital Signs Temp Pulse Pulse Resp BP BP Pulse Ox 05/24/23 13:14 98.3 F 81 18 141/79 94 L 05/24/23 06:57 97.5 F L 82 17 139/84 93 L 05/24/23 02:00 97.7 F 74 17 134/81 98 05/24/23 01:47 15 05/23/23 22:17 97.6 F 79 17 143/87 100 05/23/23 20:56 97.8 F 74 18 145/83 97 05/23/23 20:16 78 18 147/84 95 07/06/23 19:06 79 16 145/81 95 05/23/23 18:07 98.1 F 81 16 128/88 96 05/23/23 16:53 97.7 F 82 20 133/81 95 Intake and Output 05/24/23 05/24/23 05/24/23 06:59 14:59 22:59 Output Total 650 Balance -650 Output: Urine 650 Other: Voiding Method Diaper External Catheter External Catheter Results CBC & Chem 7: 05/23/23 17:07 05/24/23 12:43 Labs: Abnormal Lab Results - Last 24 Hours (Table) 05/23/23 05/23/23 05/23/23 Range/Units 17:07 17:07 17:07 MCV 75.3 L (80.0-100.0) fL MCH 23.3 L (25.0-35.0) pg MCHC 30.9 L (31.0-37.0) g/dL RDW 27.6 H (11.5-15.5) % Lymphocytes # 0.7 L (1.0-4.8) k/uL ESR 37 H (0-20) mm/hr Sodium 135 L (137-145) mmol/L Creatinine 0.48 L (0.52-1.04) mg/dL Alkaline Phosphatase 157 H (38-126) U/L 05/24/23 Range/Units 12:43 MCV (80.0-100.0) fL MCH (25.0-35.0) pg MCHC (31.0-37.0) g/dL RDW (11.5-15.5) % Lymphocytes # (1.0-4.8) k/uL ESR (0-20) mm/hr Sodium (137-145) mmol/L Creatinine 0.36 L (0.52-1.04) mg/dL Alkaline Phosphatase (38-126) U/L Assessment and Plan Plan: Patient with a left parotid and neck area swelling and redness with concern for possible parotitis versus abscess 2-patient with a penicillin allergy 3 will admit the number of antibiotics safe to use 3-patient benefit from CT of the affected area to make an evidence of any abscess that may need to be drained 4-continue with Rocephin we will add clindamycin 5-we will check cultures and inflammatory markers We will follow on clinical condition and cultures to further adjust medication if needed Thank you for this consultation we will follow the patient along with you
[2023-05-24 21:28] LABS: Chol/HDL Ratio 2.03 Ratio; LDL Cholesterol,Calculated 77.4 mg/dL (0.0-131.0); VLDL Calculation 11.22 mg/dL (5.00-40.00)
[2023-05-24] MEDS: CYCLOBENZAPRINE 5 MG TAB PO SCH (21:44)
[2023-05-24] MEDS: ATORVASTATIN 20 MG TAB PO SCH (21:44)
[2023-05-24] MEDS: TIMOLOL 0.5% OPHTH DROPS 5 ML BTL LEFT EYE SCH (21:45)
--- NOTE | 2023-05-24 22:18 | CT ---
EXAMINATION TYPE: CT cervical spine wo/w con CT DLP: 643.6 mGycm, Automated exposure control for dose reduction was used. DATE OF EXAM: 05/24/2023 9:27 PM COMPARISON: CT 05/23/2023. CLINICAL INDICATION:Female, 72 years old with history of left lateral neck pain, left lateral neck pa in. parotid gland included per Dr. Veras. TECHNIQUE: Axial CT images from the skull base to the inferior aspect of T2 we obtained without intra venous contrast. Coronal and sagittal reformatted images were also reviewed. Contrast used:100ml mL of Isovue 300 without and with IV Contrast, (if blank None) Oral contrast used: (if blank None) FINDINGS: Fracture: Multilevel compression deformities throughout the upper thoracic spine with some having gre ater than 50% height loss. Right supraspinatus rotator cuff tear with atrophy of the muscle. Osseous structures: Multilevel degenerative disc disease changes with endplate spurring and disc oste ophyte complex's. Vertebral alignment: Alignment within normal limits. Spinal canal/Neural Foramina: No evidence for significant spinal canal stenosis. No evidence for sign ificant neural foraminal stenosis. Neck soft tissues: Prevertebral soft tissues are within normal limits. Calcifications are seen within the bilateral parotid glands. There is a left 12 mm superficial parotid gland cyst which does not en perla. There is a large right thyroid gland nodule inferiorly measuring 3.4 x 3.4 cm. Right supraspin atus rotator cuff tear with atrophy of the muscle. Other: The airway is patent. The lung apices are clear. IMPRESSION: 1. No evidence of cervical spine fracture. 2. No definitive finding to correlate patient's left lateral neck pain 3. Nonenhancing left superficial parotid gland lesion measuring 12 mm favored represent a cyst. Consi antione ultrasound evaluation as clinically warranted. 4. Large right inferior thyroid gland lesion. This lesion underwent tissue sampling and 2018. The les ion is now larger and centrally nonenhancing.
[2023-05-25] MEDS: CLINDAMYCIN 600 MG in DEXTROSE 5% IN WATER 50 ML IVPB SCH ×8 (02:04→23:36)
[2023-05-25] MEDS: METOPROLOL SUCCINATE (ER) 25 MG TAB.ER.24H PO SCH (07:15)
[2023-05-25] MEDS: FOLIC ACID 1 MG TAB PO SCH (07:15)
[2023-05-25] MEDS: PHENYTOIN SODIUM EXTENDED 100 MG CAP PO SCH ×2 (07:16→15:36)
[2023-05-25] MEDS: PANTOPRAZOLE 40 MG TABLET PO SCH (07:16)
[2023-05-25] MEDS: CLOPIDOGREL 75 MG TAB PO SCH (07:16)
[2023-05-25] MEDS: FERROUS SULFATE 325 MG TAB PO SCH ×2 (07:16→15:36)
[2023-05-25] MEDS: VIT A,C & E-LUTEIN-MINERALS 1 EACH TAB PO SCH (07:16)
[2023-05-25] MEDS: CHOLECALCIFEROL 25 MCG (1000 IU) TABLET PO SCH (07:16)
[2023-05-25] MEDS: NON FORMULARY DRUG (Tofacitinib Citrate [Xeljanz Xr] 11 MG Tab.Er.24h) PO SCH (07:17)
[2023-05-25] MEDS: cycloSPORINE 0.05% OPHTH 0.4 ML DROPERETTE BOTH EYES SCH ×2 (07:17→15:41)
[2023-05-25] MEDS: LIDOCAINE 5% PATCH TOPICAL SCH (07:23)
[2023-05-25] MEDS: DORZOLAMIDE HCL 2% DROPS 10 ML BTL LEFT EYE SCH ×3 (07:24→20:12)
[2023-05-25] MEDS: prednisoLONE ACETATE 1% OPHTH DROPS 5 ML BTL RIGHT EYE SCH (07:27)
[2023-05-25] MEDS: TIMOLOL 0.5% OPHTH DROPS 5 ML BTL LEFT EYE SCH ×2 (07:33→20:12)
--- NOTE | 2023-05-25 08:50 | P.PN ---
Subjective 05/24/2023 This is a 78-year-old female resident of [facility], past medical history significant for multiple CVAs-left frontal, DVT, glaucoma, legally blind, gastroesophageal reflux disease, rheumatoid arthritis, CAD, hypothyroidism, epilepsy, iron deficiency anemia, peptic ulcer, previous infection of left neck with left lateral neck surgery and multiple other medical issues admitted with left neck tenderness and edema, since May 21 and continued worsening in addition to "visual changes"in a patient with history of legal blindness.daughter reports patient can normally identify her from the doorway and was not able to do so in the ER .Denies headache.brain CT reported no acute intracranial process, remote left inner injuries along with nonspecific white matter changes likely secondary to chronic microangiopathy.CTA reported no evidence of dissection of the cervical internal carotid arteries are vertebral arteries or any evidence of significant stenosis at the carotid bifurcations, no evidence of intracranial high-grade stenosis or intracranial aneurysm, enlarged and heterogenous right thyroid lobe.Chest x-ray reported left lower lobe airspace opacity in a patient with history of rheumatoid lung. Afebrile normal WBC. ESR 37. Urine legionella AG negative. Denies cough, congestion or shortness of breath. Maintaining O2 sats in the 90s on room air. Denies chest pain, palpitations. 05/25/2023: Patient is reevaluated for her multiple medical complaints. This is a resident of [facility] with known rheumatoid arthritis and seizure disorder along with significant glaucoma. I've seen her at least monthly the past several years. Other than the parotid gland swelling, she seems at her baseline. Consult recommendations were noted. MRI is currently pending. She remains on IV antibiotics of Rocephin and clindamycin. She also continued on her home medications. Consult recommendations reviewed. Blood cultures remain negative. Vital signs are stable. Laboratory studies are pending for this morning. The patient has no specific complaints today. Other than pain at her left neck mastoid area. She denies any chest pains pressures or shortness breath, nausea or vomiting Objective - Vital Signs Vital signs: Vital Signs Temp 98.4 F 05/25/23 01:53 Pulse 91 05/25/23 01:53 Resp 16 05/25/23 01:53 BP 143/81 05/25/23 01:53 Pulse Ox 96 05/25/23 01:53 FiO2 Intake & Output 0705/25/23 05/25/23 18:59 06:59 18:59 Intake Total 100 Output Total 1000 1400 Balance -900 -1400 Intake: Intake, IV Titration 100 Amount Clindamycin 600 mg In 50 Dextrose 5% in Water 50 ml @ 50 mls/hr IVPB Q8HR [facility] Rx#:[id number] cefTRIAXone 2 gm In 50 Sodium Chloride 0.9% 50 ml @ 100 mls/hr IVPB Q24HR [facility] Rx#:[id number] Output: Urine 1000 1400 Other: Voiding Method External Catheter External Catheter External Catheter # Voids 2 - Exam General: Elderly female, well-known to me, in no distress, has poor dentition Neck: The neck is supple, there is no thyromegaly, or JVD. , There is a mass to her left neck that is subcutaneous consistent with parotiditis, there is no superficial erythematous time. Cardiovascular: S1S2 is normal, There is a regular rate and rhythm. No rub or gallop is appreciated. 1/6 systolic murmur at the right sternal border Respiratory: Lungs are coarse to auscultation bilaterally, respirations are non-labored, breath sounds are equal. There is minimal left basilar rhonchi consistent with her rheumatoid lung Gastrointestinal: Soft, non-distended, non-tender abdomen without masses or organomegaly noted. There is no rebound or guarding present. Bowel sounds are unremarkable. Musculoskeletal: Normal ROM, no tenderness, There is no pedal edema. Joint deformities due to rheumatoid arthritis Neurological: CN II-XII intact, there are no obvious motor or sensory deficits. Coordination appears grossly intact. Speech is normal. Skin: Skin is warm and dry and no rashes or lesions are noted. - Labs CBC & Chem 7: 05/23/23 17:07 05/24/23 12:43 Labs: Abnormal Lab Results - Last 24 Hours (Table) 05/24/23 05/24/23 05/24/23 Range/Units 12:43 15:00 15:00 Creatinine 0.36 L (0.52-1.04) mg/dL HDL Cholesterol 86.40 H (40.00-60.00) mg/dL Folate 40.00 H (4.40-31.00) ng/mL Microbiology - Last 24 Hours (Table) 05/23/23 17:15 Blood Culture - Preliminary Blood 05/23/23 17:15 Blood Culture - Preliminary Blood Assessment and Plan (1) Rheumatoid arthritis Current Visit: Yes Status: Acute Code(s): M06.9 - RHEUMATOID ARTHRITIS, UNSPECIFIED SNOMED Code(s): 16538220 (2) Rheumatoid lung disease Current Visit: Yes Status: Acute Code(s): M05.10 - RHEUMATOID LUNG DISEASE W RHEUMATOID ARTHRITIS OF [facility] SITE SNOMED Code(s): 473398778 (3) Glaucoma Current Visit: Yes Status: Acute Code(s): H40.9 - UNSPECIFIED GLAUCOMA SNOMED Code(s): 21747507 (4) Vision changes Current Visit: Yes Status: Acute Code(s): H53.9 - UNSPECIFIED VISUAL DISTURBANCE SNOMED Code(s): 407893044 (5) H/O: CVA (cerebrovascular accident) Current Visit: Yes Status: Acute Code(s): Z86.73 - PRSNL HX OF TIA (TIA), AND CEREB INFRC W/O RESID DEFICITS SNOMED Code(s): 190019203 (6) Iron deficiency anemia Current Visit: Yes Status: Acute Code(s): D50.9 - IRON DEFICIENCY ANEMIA, UNSPECIFIED SNOMED Code(s): 19240036 (7) Parotitis, acute Current Visit: Yes Status: Acute Code(s): K11.21 - ACUTE SIALOADENITIS SNOMED Code(s): 85616120 (8) H/O thyroid nodule Current Visit: Yes Status: Acute Code(s): Z86.39 - PERSONAL HISTORY OF ENDO, NUTRITIONAL AND METABOLIC DISEASE SNOMED Code(s): 725208455 Plan: This point patient seems stable. Will confirm what her MRI is, she'll continue on antibiotics at this time. If it the MRI is going to be several days out, we'll change his outpatient, possibly changed to oral antibiotics and return her to [facility]. If not she will be reevaluated next 24 hours.
[2023-05-25] MEDS: HYDROcodone/APAP 5-325MG 1 EACH TAB PO PRN ×2 (11:57→20:11)
[2023-05-25] MEDS: CALCIUM CARBONATE 500 MG CHEWABLE PO SCH (11:58)
--- NOTE | 2023-05-25 13:37 | P.PN ---
Subjective Progress Note Date: 05/25/23 Principal diagnosis: L parotitis Patient is a 72-year-old female intermediate resident has been brought into the hospital for evaluation of left neck area swelling and concern for possible parotitis. On today's evaluation that is 05/25/2023 patient denies having any fever or any chills, patient pain and swelling to the left parotid and neck area has slightly decreased intensity denies any difficulty swallowing no chest pain or shortness of breath currently 98% on room air no abdominal pain and no diarrhea has been reported Objective - Vital Signs Vital signs: Vital Signs Temp 97.5 F L 05/25/23 07:01 Pulse 87 05/25/23 07:01 Resp 19 05/25/23 07:01 BP 133/84 05/25/23 07:01 Pulse Ox 98 05/25/23 07:01 FiO2 Intake & Output 05/24/23 05/25/23 05/25/23 18:59 06:59 18:59 Intake Total 100 Output Total 1000 1400 Balance -900 -1400 Intake: Intake, IV Titration 100 Amount Clindamycin 600 mg In 50 Dextrose 5% in Water 50 ml @ 50 mls/hr IVPB Q8HR [facility] Rx#:[id number] cefTRIAXone 2 gm In 50 Sodium Chloride 0.9% 50 ml @ 100 mls/hr IVPB Q24HR [facility] Rx#:[id number] Output: Urine 1000 1400 Other: Voiding Method External Catheter External Catheter External Catheter # Voids 2 - Exam Elderly female lying in bed in no distress Left parotid and neck area swelling has slightly decreased less tender to touch Lungs clear to auscultation Exam completed with the help of [facility] - Labs CBC & Chem 7: 05/23/23 17:07 05/24/23 12:43 Labs: Abnormal Lab Results - Last 24 Hours (Table) 05/24/23 05/24/23 05/24/23 Range/Units 12:43 15:00 15:00 Creatinine 0.36 L (0.52-1.04) mg/dL HDL Cholesterol 86.40 H (40.00-60.00) mg/dL Folate 40.00 H (4.40-31.00) ng/mL Microbiology - Last 24 Hours (Table) 05/23/23 17:15 Blood Culture - Preliminary Blood 05/23/23 17:15 Blood Culture - Preliminary Blood Assessment and Plan (1) Parotitis, acute Current Visit: Yes Status: Acute Code(s): K11.21 - ACUTE SIALOADENITIS SNOMED Code(s): 23288150 Plan: this was a telehealth visit 1-Patient with a left parotid and neck area swelling and redness with concern for possible parotitis versus abscess 2-patient with a penicillin allergy 3 will admit the number of antibiotics safe to use 3-Patient did have a CT of the neck no evidence of any abscess left superficial parotid gland lesion concerning for cyst recommending ultrasound which will be ordered. 4patient to continue with Rocephin and clindamycin in view of clinical response and monitor clinical course closely Time with Patient: Less than 30
--- NOTE | 2023-05-25 14:13 | P.PN ---
Subjective Progress Note Date: 05/25/23 The patient is seen at bedside and that she feels about the same. She continues to have pain over the left lateral neck region in its upper. She is receiving IV antibiotic. She continues to have visual disturbance and does not feel there is any improvement. Objective - Vital Signs Vital signs: Vital Signs Temp 97.5 F L 05/25/23 07:01 Pulse 87 05/25/23 07:01 Resp 19 05/25/23 07:01 BP 133/84 05/25/23 07:01 Pulse Ox 98 05/25/23 07:01 FiO2 Intake & Output 05/24/23 05/25/23 05/25/23 18:59 06:59 18:59 Intake Total 100 Output Total 1000 1400 Balance -900 -1400 Intake: Intake, IV Titration 100 Amount Clindamycin 600 mg In 50 Dextrose 5% in Water 50 ml @ 50 mls/hr IVPB Q8HR [facility] Rx#:[id number] cefTRIAXone 2 gm In 50 Sodium Chloride 0.9% 50 ml @ 100 mls/hr IVPB Q24HR [facility] Rx#:[id number] Output: Urine 1000 1400 Other: Voiding Method External Catheter External Catheter External Catheter # Voids 2 - Exam Neuro: Patient is awake alert oriented to self and time. Patient is following simple commands. No aphasia neglect. Primary gaze is the left eyes slightly deviated to the lateral side. He continues to have significant visual disturbance and states only sees shadows. Extraocular movement is that patient has a restriction in the left eyes looking medially. No facial droop Note no dysarthria. Motor is strength is lifting all extremities above gravity. Some of the workup during his hospital visit consisted of: ESR is 37. CT of brain is reported as no acute intracranial process. Remote lacunar injuries along with nonspecific white matter changes likely secondary due to chronic microangiopathy. I personally reviewed the CT and that seems the patient had bilateral lacunar stroke on both as cerebral regions and the patient has more hydrocephalus over the left anterior lateral ventricle compared to the right with history of left frontal stroke in which she has left encephalomalacia. Again the patient has bilateral nasal cannula lacunar stroke. Right thalamus stroke as well as small left thalamus stroke more right caudate nucleus stroke. 2. On review of the head and neck was reported as no evidence of dissection cervical internal carotid artery or vertebral artery or any evidence of significant stenosis at the carotid bifurcation. No evidence of intracranial high-grade stenosis or intracranial aneurysm. A large and heterogeneous right thyroid lobe, consider nonemergent evaluation with dedicated thyroid ultrasound. CT of the cervical with and without is reported as no evidence of cervical spine fracture. No definite findings correlate patient's left lateral neck pain. Nonenhancing left superficial parotid gland lesion measuring 12 mm favored represent a cyst. Consider ultrasound evaluation as clinically warranted. Large right inferior thyroid gland lesion. The lesion underwent tissue sampling and 2018. The lesion is now larger and centrally nonenhancing. - Labs CBC & Chem 7: 05/23/23 17:07 05/24/23 12:43 Labs: Abnormal Lab Results - Last 24 Hours (Table) 05/24/23 05/24/23 Range/Units 15:00 15:00 HDL Cholesterol 86.40 H (40.00-60.00) mg/dL Folate 40.00 H (4.40-31.00) ng/mL Microbiology - Last 24 Hours (Table) 05/23/23 17:15 Blood Culture - Preliminary Blood 05/23/23 17:15 Blood Culture - Preliminary Blood Assessment and Plan Assessment: This is a 72-year-old woman who presented because of left lateral neck pain concern for infection as well as worsening of visual changes. Acute visual changes (appears worse on the left than right with on examination has partial left CN III palsy): Rule out acute subacute ischemia (ESR is 37 and not significantly elevated. Does not have headache, jaw claudication). At baseline patient has poor vision but is able to see objects but currently only sees shadows. If negative for stroke and possibly glaucoma. Unlikely giant cell arteritis Left lateral neck pain and it's tender to touch as well as is hard to palpation: It was felt possible due to parotiditis. On CT has cyst. Worsening right inferior thyroid gland lesion on CT neck History of multiple strokes most of the stroke symptoms due to a chronic small vessel disease also had a stroke in the past in which she had left frontal bleed and did not require any surgical intervention and unknown cause according to the daughter History of significant visual disturbance the patient had a history of cataract glaucoma has surgeries History of epilepsy History of significant arthritis History of DVT Hypothyroidism History of iron deficiency anemia History of peptic ulcer disease Plan: pending MRI of the brain to rule out any acute or subacute ischemia Ophthalmology evaluated the patient and felt vision loss is most likely due to severe glaucoma. Patient is on Plavix with home dose 75 mg daily. Also patient is on Lipitor 20 mg daily at bedtime For her history of epilepsy patient is resumed on her home dose of Dilantin 300 mg daily. ENT is consulted for left neck infection. They felt left parotid infection and I.D. is on board. We'll defer the rest of the medical management to the primary team Regarding due to the worsening of the right inferior thyroid gland lesion seen on the CT of the neck will defer the management to the primary. The plan was discussed with the patient's daughter was at bedside as well as the her nurse. We'll continue to follow up with the patient. Time with Patient: Less than 30
[2023-05-25] MEDS: CYCLOBENZAPRINE 5 MG TAB PO SCH (20:12)
[2023-05-25] MEDS: ATORVASTATIN 20 MG TAB PO SCH (20:12)
[2023-05-26] MEDS: METOPROLOL SUCCINATE (ER) 25 MG TAB.ER.24H PO SCH (08:48)
[2023-05-26] MEDS: PANTOPRAZOLE 40 MG TABLET PO SCH (08:48)
[2023-05-26] MEDS: LIDOCAINE 5% PATCH TOPICAL SCH (08:48)
[2023-05-26] MEDS: CLOPIDOGREL 75 MG TAB PO SCH (08:48)
[2023-05-26] MEDS: FERROUS SULFATE 325 MG TAB PO SCH ×2 (08:48→16:58)
[2023-05-26] MEDS: FOLIC ACID 1 MG TAB PO SCH (08:48)
[2023-05-26] MEDS: CHOLECALCIFEROL 25 MCG (1000 IU) TABLET PO SCH (08:48)
[2023-05-26] MEDS: cycloSPORINE 0.05% OPHTH 0.4 ML DROPERETTE BOTH EYES SCH ×2 (08:49→17:06)
[2023-05-26] MEDS: PHENYTOIN SODIUM EXTENDED 100 MG CAP PO SCH ×2 (08:50→17:06)
[2023-05-26] MEDS: NON FORMULARY DRUG (Tofacitinib Citrate [Xeljanz Xr] 11 MG Tab.Er.24h) PO SCH (08:50)
[2023-05-26] MEDS: VIT A,C & E-LUTEIN-MINERALS 1 EACH TAB PO SCH (08:51)
[2023-05-26] MEDS: DORZOLAMIDE HCL 2% DROPS 10 ML BTL LEFT EYE SCH ×3 (08:55→20:38)
[2023-05-26] MEDS: prednisoLONE ACETATE 1% OPHTH DROPS 5 ML BTL RIGHT EYE SCH (08:55)
[2023-05-26] MEDS: TIMOLOL 0.5% OPHTH DROPS 5 ML BTL LEFT EYE SCH ×2 (09:33→20:38)
[2023-05-26] MEDS: CLINDAMYCIN 600 MG in DEXTROSE 5% IN WATER 50 ML IVPB SCH ×4 (10:04→16:58)
--- NOTE | 2023-05-26 11:17 | P.PN ---
Subjective 05/24/2023 This is a 78-year-old female resident of [facility], past medical history significant for multiple CVAs-left frontal, DVT, glaucoma, legally blind, gastroesophageal reflux disease, rheumatoid arthritis, CAD, hypothyroidism, epilepsy, iron deficiency anemia, peptic ulcer, previous infection of left neck with left lateral neck surgery and multiple other medical issues admitted with left neck tenderness and edema, since May 21 and continued worsening in addition to "visual changes"in a patient with history of legal blindness.daughter reports patient can normally identify her from the doorway and was not able to do so in the ER .Denies headache.brain CT reported no acute intracranial process, remote left inner injuries along with nonspecific white matter changes likely secondary to chronic microangiopathy.CTA reported no evidence of dissection of the cervical internal carotid arteries are vertebral arteries or any evidence of significant stenosis at the carotid bifurcations, no evidence of intracranial high-grade stenosis or intracranial aneurysm, enlarged and heterogenous right thyroid lobe.Chest x-ray reported left lower lobe airspace opacity in a patient with history of rheumatoid lung. Afebrile normal WBC. ESR 37. Urine legionella AG negative. Denies cough, congestion or shortness of breath. Maintaining O2 sats in the 90s on room air. Denies chest pain, palpitations. 05/25/2023: Patient is reevaluated for her multiple medical complaints. This is a resident of [facility] with known rheumatoid arthritis and seizure disorder along with significant glaucoma. I've seen her at least monthly the past several years. Other than the parotid gland swelling, she seems at her baseline. Consult recommendations were noted. MRI is currently pending. She remains on IV antibiotics of Rocephin and clindamycin. She also continued on her home medications. Consult recommendations reviewed. Blood cultures remain negative. Vital signs are stable. Laboratory studies are pending for this morning. The patient has no specific complaints today. Other than pain at her left neck mastoid area. She denies any chest pains pressures or shortness breath, nausea or vomiting 05/26/2023: Patient reports she feels slightly better her neck pain. She has a prostatitis to this area. The ENT is evaluated her made recommendations from infectious disease consult and will evaluate her outpatient needed. Patient Indicates her vision is about the same. She has significant glaucoma noted. She been seen by ophthalmology who believes her vision changes are due to her significant glaucoma. Neurology is following her for possible dysarthria and occult CVA. An MRI is pending for tomorrow. Vital signs remained stable. She remains afebrile. Operatory studies are pending for today. She continues on her home medications. She continues specifically on Rocephin and clindamycin for her parotiditis The patient herself denies any chest pains pressures (morning. Objective - Vital Signs Vital signs: Vital Signs Temp 97.6 F 05/26/23 06:52 Pulse 67 05/26/23 06:52 Resp 18 05/26/23 06:52 BP 135/80 05/26/23 06:52 Pulse Ox 98 05/26/23 08:50 FiO2 Intake & Output 05/25/23 05/26/23 05/26/23 18:59 06:59 18:59 Intake Total 50 236 Output Total 700 110 Balance -650 -110 236 Intake: Intake, IV Titration 50 Amount Clindamycin 600 mg In 50 Dextrose 5% in Water 50 ml @ 50 mls/hr IVPB Q8HR [facility] Rx#:[id number] Oral 236 Output: Urine 700 110 Other: Voiding Method External Catheter External Catheter External Catheter - Exam General: Elderly female, well-known to me, in no distress, has poor dentition Neck: The neck is supple, there is no thyromegaly, or JVD. , There is a mass to her left neck that is subcutaneous consistent with parotiditis, there is no superficial erythematous time. It is less hard today. Cardiovascular: S1S2 is normal, There is a regular rate and rhythm. No rub or gallop is appreciated. 1/6 systolic murmur at the right sternal border Respiratory: Lungs are coarse to auscultation bilaterally, respirations are non-labored, breath sounds are equal. There is minimal left basilar rhonchi consistent with her rheumatoid lung Gastrointestinal: Soft, non-distended, non-tender abdomen without masses or organomegaly noted. There is no rebound or guarding present. Bowel sounds are unremarkable. Musculoskeletal: Normal ROM, no tenderness, There is no pedal edema. Joint deformities due to rheumatoid arthritis Neurological: CN II-XII intact, there are no obvious motor or sensory deficits. Coordination appears grossly intact. Speech is normal. Skin: Skin is warm and dry and no rashes or lesions are noted, other than left anterior neck. - Labs CBC & Chem 7: 05/23/23 17:07 05/24/23 12:43 Labs: Microbiology - Last 24 Hours (Table) 05/23/23 17:15 Blood Culture - Preliminary Blood 05/23/23 17:15 Blood Culture - Preliminary Blood Assessment and Plan (1) Parotitis, acute Current Visit: Yes Status: Acute Code(s): K11.21 - ACUTE SIALOADENITIS SNOMED Code(s): 16461267 (2) Rheumatoid arthritis Current Visit: Yes Status: Acute Code(s): M06.9 - RHEUMATOID ARTHRITIS, UNSPECIFIED SNOMED Code(s): 13163449 (3) Rheumatoid lung disease Current Visit: Yes Status: Acute Code(s): M05.10 - RHEUMATOID LUNG DISEASE W RHEUMATOID ARTHRITIS OF [facility] SITE SNOMED Code(s): 318174001 (4) Glaucoma Current Visit: Yes Status: Acute Code(s): H40.9 - UNSPECIFIED GLAUCOMA SNOMED Code(s): 89567973 (5) Vision changes Current Visit: Yes Status: Acute Code(s): H53.9 - UNSPECIFIED VISUAL DISTURBANCE SNOMED Code(s): 346613025 (6) H/O: CVA (cerebrovascular accident) Current Visit: Yes Status: Acute Code(s): Z86.73 - PRSNL HX OF TIA (TIA), AND CEREB INFRC W/O RESID DEFICITS SNOMED Code(s): 875239914 (7) Iron deficiency anemia Current Visit: Yes Status: Acute Code(s): D50.9 - IRON DEFICIENCY ANEMIA, UNSPECIFIED SNOMED Code(s): 86350084 (8) H/O thyroid nodule Current Visit: Yes Status: Acute Code(s): Z86.39 - PERSONAL HISTORY OF ENDO, NUTRITIONAL AND METABOLIC DISEASE SNOMED Code(s): 763932864 Plan: MRI is pending for tomorrow. Other issues seem stable at this time. Continue current medications. Repeat labs in am. Will reevaluate next 24 hours. She may be discharged home at that point after the MRI depending on findings with outpatient follow-up and antibiotics based on infectious disease recommendations.
[2023-05-26] MEDS: CALCIUM CARBONATE 500 MG CHEWABLE PO SCH (11:42)
[2023-05-26] MEDS: CYCLOBENZAPRINE 5 MG TAB PO SCH (20:37)
[2023-05-26] MEDS: ATORVASTATIN 20 MG TAB PO SCH (20:37)
[2023-05-26] MEDS: HYDROcodone/APAP 5-325MG 1 EACH TAB PO PRN (20:37)
[2023-05-27] MEDS: CLINDAMYCIN 600 MG in DEXTROSE 5% IN WATER 50 ML IVPB SCH ×6 (00:35→15:02)
[2023-05-27 07:09] VITALS: BP 144/79; PULSE 88; RESP 18; TEMP 99.2
[2023-05-27] MEDS: LIDOCAINE 5% PATCH TOPICAL SCH (07:51)
[2023-05-27] MEDS: METOPROLOL SUCCINATE (ER) 25 MG TAB.ER.24H PO SCH (07:52)
[2023-05-27] MEDS: FERROUS SULFATE 325 MG TAB PO SCH (07:52)
[2023-05-27] MEDS: CLOPIDOGREL 75 MG TAB PO SCH (07:52)
[2023-05-27] MEDS: PANTOPRAZOLE 40 MG TABLET PO SCH (07:52)
[2023-05-27] MEDS: FOLIC ACID 1 MG TAB PO SCH (07:52)
[2023-05-27] MEDS: CHOLECALCIFEROL 25 MCG (1000 IU) TABLET PO SCH (07:52)
[2023-05-27] MEDS: PHENYTOIN SODIUM EXTENDED 100 MG CAP PO SCH (07:53)
[2023-05-27] MEDS: VIT A,C & E-LUTEIN-MINERALS 1 EACH TAB PO SCH (07:53)
[2023-05-27] MEDS: cycloSPORINE 0.05% OPHTH 0.4 ML DROPERETTE BOTH EYES SCH (07:53)
[2023-05-27] MEDS: NON FORMULARY DRUG (Tofacitinib Citrate [Xeljanz Xr] 11 MG Tab.Er.24h) PO SCH (07:54)
[2023-05-27] MEDS: prednisoLONE ACETATE 1% OPHTH DROPS 5 ML BTL RIGHT EYE SCH (07:54)
[2023-05-27] MEDS: DORZOLAMIDE HCL 2% DROPS 10 ML BTL LEFT EYE SCH ×2 (08:01→15:03)
[2023-05-27 08:44] LABS: BUN/Creat Ratio 18.75 Ratio (12.00-20.00); Blood Urea Nitrogen 7.5 mg/dL (9.0-27.0); Calcium 8.7 mg/dL (8.7-10.3); Carbon Dioxide 22.5 mmol/L (21.6-31.8); Chloride 103 mmol/L (96-109); Glucose 84 mg/dL (70-110); Potassium 4.4 mmol/L (3.5-5.5); Sodium 136 mmol/L (135-145)
[2023-05-27 09:52] LABS: HCT 37.6 % (37.2-46.3); HGB 11.5 d/dL (12.0-15.0); MCH 23.2 pg (27.0-32.0); MCHC 30.6 d/dL (32.0-37.0); Mean Platelet Volume 9.7 FL (9.5-12.2); NRBC Per 100 WBC 0 X 10*3/uL (0.00-0.01); Platelet Count 287 X 10*3/uL (140-440); RBC 4.95 X 10*6/uL (4.10-5.20); RDW 32.1 % (11.5-14.5); WBC 4.95 X 10*3/uL (4.50-10.00)
--- NOTE | 2023-05-27 09:56 | P.PN ---
Subjective Progress Note Date: 05/26/23 Principal diagnosis: L parotitis Patient is a 72[facility] has been brought into the hospital for evaluation of left neck area swelling and concern for possible parotitis. On today's evaluation that is 05/26/2023 patient remains to be afebrile, the patient is breathing comfortably the patient left-sided neck pain and swelling has improved denies any difficulty swallowing or breathing no chest pain shortness of the cough and no diarrhea Objective - Vital Signs Vital signs: Vital Signs Temp 98.4 F 05/26/23 19:36 Pulse 93 05/26/23 19:36 Resp 17 05/26/23 19:36 BP 109/68 05/26/23 19:36 Pulse Ox 92 L 05/26/23 19:36 FiO2 Intake & Output 05/26/23 05/26/23 05/27/23 06:59 18:59 06:59 Intake Total 236 Output Total 110 1500 Balance -110 -1264 Intake: Oral 236 Output: Urine 110 1500 Other: Voiding Method External Catheter External Catheter - Exam GENERAL DESCRIPTION: Elderly female lying in bed in no distress HEENT: Left-sided neck swelling and induration has much improved less tender RESPIRATORY SYSTEM: Unlabored breathing , decreased breath sounds at bases HEART: S1 S2 regular rate and rhythm ,no loud murmurs ABDOMEN: Soft , no tenderness EXTREMITIES: No edema feet - Labs CBC & Chem 7: 05/27/23 04:25 05/27/23 04:25 Labs: Microbiology - Last 24 Hours (Table) 05/23/23 17:15 Blood Culture - Preliminary Blood 05/23/23 17:15 Blood Culture - Preliminary Blood Assessment and Plan (1) Parotitis, acute Current Visit: Yes Status: Acute Code(s): K11.21 - ACUTE SIALOADENITIS SNOMED Code(s): 10475238 Plan: 1-Patient with a left parotid and neck area swelling and redness with concern for possible parotitis versus abscess 2-patient with a penicillin allergy 3 will admit the number of antibiotics safe to use 3-Patient did have a CT of the neck no evidence of any abscess left superficial parotid gland lesion , Which has significantly decreased in size on current examination today. 4patient to continue Rocephin and clindamycin however will consider short course of oral Ceftin on discharge Time with Patient: Less than 30
--- NOTE | 2023-05-27 10:21 | P.DS ---
Providers Date of admission: 05/23/23 20:14 Expected date of discharge: 05/27/23 Attending physician: Davon Wooten Consults: 05/23/23 20:14 Consult Physician Routine Consulting Provider: Cb Seo Consult Reason/Comments: L neck infection Do you want consulting provider notified?: Yes 05/23/23 20:16 Consult Physician Routine Consulting Provider: Mike Veras Consult Reason/Comments: visual changes Do you want consulting provider notified?: Yes 05/24/23 12:37 Consult Physician Urgent Consulting Provider: Carl Faith Consult Reason/Comments: visual disturbance. r/o giant cell arteritis Do you want consulting provider notified?: Yes 05/24/23 14:42 Consult Physician Routine Consulting Provider: Jayleen Wyman Consult Reason/Comments: Left parotis, please select antibiotic choice for left acute parotid infect Do you want consulting provider notified?: Yes Primary care physician: Davon Wooten Hospital Course: Final Diagnoses: Acute left Parotitis Acute visual changes in a patient with cataracts, glaucoma with surgeries ,Legally blind with complaints of worsening vision. Per ophthalmology evalu ation, suspect related to severe glaucoma, no evidence of giant cell arteritis. History of multiple CVAs, left frontal bleed not requiring surgical intervention per daughter Rheumatoid lung, history of History of right thyroid lobe, follows with Dr. Seo, ENT ,outpatient. History of epilepsy Rheumatoid arthritis History of DVT Iron deficiency anemia, history of Peptic ulcer disease Hospital course:This is a 78-year-old female resident of [facility], past medical history significant for multiple CVAs-left frontal, DVT, glaucoma, legally blind, gastroesophageal reflux disease, rheumatoid arthritis, CAD, hypothyroidism, epilepsy, iron deficiency anemia, peptic ulcer, previous infection of left neck with left lateral neck surgery and multiple other medical issues admitted with left neck tenderness and edema, since May 21 and continued worsening in addition to "visual changes"in a patient with history of legal blindness.daughter reports patient can normally identify her from the doorway and was not able to do so in the ER .Denies headache.brain CT reported no acute intracranial process, remote left inner injuries along with nonspecific white matter changes likely secondary to chronic microangiopathy.CTA reported no evidence of dissection of the cervical internal carotid arteries are vertebral arteries or any evidence of significant stenosis at the carotid bifurcations, no evidence of intracranial high-grade stenosis or intracranial aneurysm, enlarged and heterogenous right thyroid lobe.Chest x-ray reported left lower lobe airspace opacity in a patient with history of rheumatoid lung. Afebrile normal WBC. ESR 37. Urine legionella AG negative. Denies cough, congestion or shortness of breath. Maintaining O2 sats in the 90s on room air. Denies chest pain, palpitations. 05/25/2023: Patient is reevaluated for her multiple medical complaints. This is a resident of [facility] with known rheumatoid arthritis and seizure disorder along with significant glaucoma. I've seen her at least monthly the past several years. Other than the parotid gland swelling, she seems at her baseline. Consult recommendations were noted. MRI is currently pending. She remains on IV antibiotics of Rocephin and clindamycin. She also continued on her home medications. Consult recommendations reviewed. Blood cultures remain negative. Vital signs are stable. Laboratory studies are pending for this morning. The patient has no specific complaints today. Other than pain at her left neck mastoid area. She denies any chest pains pressures or shortness breath, nausea or vomiting 05/26/2023: Patient reports she feels slightly better her neck pain. She has a prostatitis to this area. The ENT is evaluated her made recommendations from infectious disease consult and will evaluate her outpatient needed. Patient Indicates her vision is about the same. She has significant glaucoma noted. She been seen by ophthalmology who believes her vision changes are due to her significant glaucoma. Neurology is following her for possible dysarthria and occult CVA. An MRI is pending for tomorrow. Vital signs remained stable. She remains afebrile. Operatory studies are pendi for today. She continues on her home medications. She continues specifically on Rocephin and clindamycin for her parotiditis The patient herself denies any chest pains pressures (morning. MRI pending. Denies chest pain, palpitations or shortness of breath. Denies lightheadedness, dizziness or headache. Patient will be discharged to [facility] subacute rehab today in a stable condition with guarded prognosis pending MRI results, final DC recommendations and clearance per neurology, pending final antibiotics and clearance per infectious disease. The impression and plan of care has been dictated as directed. : I performed a history and examination of this patient, discussed the same with the dictator. I agree with the dictator's note ,documented as a scribe. Any additional findings or plans will be noted. Patient Condition at Discharge: Stable Plan - Discharge Summary Discharge Rx Participant: No New Discharge Prescriptions: Continue Multivit-Min/FA/Lycopen/Lutein [Centrum Silver Tablet] 1 tab PO DAILY@0800 prednisoLONE ACETATE 1% OPHTH [Pred Forte 1%] 1 drop RIGHT EYE DAILY@0800 Folic Acid 1 mg PO DAILY@0800 Phenytoin Sodium Extended [Dilantin] 100 mg PO DAILY@1700 Phenytoin Sodium Extended [Dilantin] 200 mg PO DAILY@0800 Clopidogrel Bisulfate [Plavix] 75 mg PO DAILY@0800 Hydrocodone/Acetaminophen [[place] 5-325] 1 tab PO TID PRN PRN Reason: Pain timoloL maleate [timoloL maleate 0.5% Ophth Gel] 1 drop LEFT EYE DAILY@0800 Propylene Glycol/Peg 400/Pf [Systane 0.3-0.4% Ophth Dropperette] 1 drop BOTH EYES BID PRN PRN Reason: Dry Eye(S) Metoprolol Succinate (ER) [Toprol XL] 12.5 mg PO DAILY@0800 Na Phos,M-B/Na Phos,Di-Ba [Fleet Adult] 133 ml RECTAL DAILY PRN PRN Reason: Constipation bisacodyL [Dulcolax] 10 mg RECTAL DAILY PRN PRN Reason: Constipation Ubidecarenone [Co Q-10] 200 mg PO DAILY@0800 Brinzolamide [Azopt 1% Ophth Susp] 1 drop LEFT EYE BID@0800,1700 Atorvastatin [Lipitor] 20 mg PO HS@2100 Tofacitinib Citrate [Xeljanz Xr] 11 mg PO DAILY@0800 Diclofenac Sodium Gel [Voltaren Gel] 2 gm TOPICAL QID PRN PRN Reason: Pain Magnesium Hydroxide [Milk of Magnesia Concentrate] 7,200 mg PO DAILY PRN PRN Reason: Constipation cycloSPORINE 0.05% OPHTH SOLN [Restasis] 1 drop BOTH EYES BID@0800,1700 Lactose-Reduced Food [Ensure Plus] 237 ml PO TID@0800,1200,1600 Ergocalciferol [Vitamin D2 (1250 Mcg = 23716 Iu)] 1,250 mcg PO FR@1700 Menthol [Biofreeze] 1 applic TOPICAL QID PRN PRN Reason: Pain Acetaminophen Tab [Tylenol] 650 mg PO Q4H PRN PRN Reason: Pain Or Fever > 100.5 Lidocaine Patch 4% 1 patch TOPICAL DAILY Cholecalciferol [Vitamin D3 (25 Mcg = 1000 Iu)] 25 mcg PO DAILY@0800 Calcium Carbonate 1,000 mg PO DAILY@1200 Cyclobenzaprine [Flexeril] 5 mg PO HS Ferrous Sulfate [Iron (65 MG Elemental)] 325 mg PO BID@0800,1700 Pantoprazole Sodium [Protonix] 40 mg PO DAILY@0800 Discontinued Ciprofloxacin HCl [Cipro] 500 mg PO BID@0800,2100 Discharge Medication List Clopidogrel Bisulfate [Plavix] 75 mg PO DAILY@0800 09/13/15 [History] Folic Acid 1 mg PO DAILY@0800 09/13/15 [History] Hydrocodone/Acetaminophen [[place] 5-325] 1 tab PO TID PRN 09/13/15 [History] Multivit-Min/FA/Lycopen/Lutein [Centrum Silver Tablet] 1 tab PO DAILY@0800 09/13/15 [History] Phenytoin Sodium Extended [Dilantin] 100 mg PO DAILY@1700 09/13/15 [History] Phenytoin Sodium Extended [Dilantin] 200 mg PO DAILY@0800 09/13/15 [History] prednisoLONE ACETATE 1% OPHTH [Pred Forte 1%] 1 drop RIGHT EYE DAILY@0800 09/13/15 [History] Atorvastatin [Lipitor] 20 mg PO HS@2100 03/31/18 [History] Brinzolamide [Azopt 1% Ophth Susp] 1 drop LEFT EYE BID@0800,1700 03/31/18 [History] Metoprolol Succinate (ER) [Toprol XL] 12.5 mg PO DAILY@0800 03/31/18 [History] Na Phos,M-B/Na Phos,Di-Ba [Fleet Adult] 133 ml RECTAL DAILY PRN 03/31/18 [History] Propylene Glycol/Peg 400/Pf [Systane 0.3-0.4% Ophth Dropperette] 1 drop BOTH EYES BID PRN 03/31/18 [History] Tofacitinib Citrate [Xeljanz Xr] 11 mg PO DAILY@0800 03/31/18 [History] Ubidecarenone [Co Q-10] 200 mg PO DAILY@0800 03/31/18 [History] bisacodyL [Dulcolax] 10 mg RECTAL DAILY PRN 03/31/18 [History] timoloL maleate [timoloL maleate 0.5% Ophth Gel] 1 drop LEFT EYE DAILY@0800 03/31/18 [History] Acetaminophen Tab [Tylenol] 650 mg PO Q4H PRN 02/04/23 [History] Calcium Carbonate 1,000 mg PO DAILY@1200 02/04/23 [History] Cholecalciferol [Vitamin D3 (25 Mcg = 1000 Iu)] 25 mcg PO DAILY@0800 02/04/23 [History] Diclofenac Sodium Gel [Voltaren Gel] 2 gm TOPICAL QID PRN 02/04/23 [History] Ergocalciferol [Vitamin D2 (1250 Mcg = 92236 Iu)] 1,250 mcg PO FR@1700 02/04/23 [History] Lactose-Reduced Food [Ensure Plus] 237 ml PO TID@0800,1200,1600 02/04/23 [History] Lidocaine Patch 4% 1 patch TOPICAL DAILY 02/04/23 [History] Magnesium Hydroxide [Milk of Magnesia Concentrate] 7,200 mg PO DAILY PRN 02/04/23 [History] Menthol [Biofreeze] 1 applic TOPICAL QID PRN 02/04/23 [History] cycloSPORINE 0.05% OPHTH SOLN [Restasis] 1 drop BOTH EYES BID@0800,1700 02/04/23 [History] Cyclobenzaprine [Flexeril] 5 mg PO HS 05/23/23 [History] Ferrous Sulfate [Iron (65 MG Elemental)] 325 mg PO BID@0800,1700 05/23/23 [History] Pantoprazole Sodium [Protonix] 40 mg PO DAILY@0800 05/23/23 [History] Follow up Appointment(s)/Referral(s): Mauri Gao [Other] - 1 Week Anu Valdez [NON-STAFF] - As Needed Davon Wooten MD [Primary Care Provider] - 3 Days
--- NOTE | 2023-05-27 11:07 | MR ---
EXAMINATION TYPE: MR brain wo/w con DATE OF EXAM: 05/27/2023 10:40 AM CLINICAL INDICATION:Female, 72 years old with history of Visual disturbance. COMPARISON: 05/23/2023 TECHNIQUE: Multi planar, multi sequence imaging was performed through the brain including: T1, T2, In version recovery, susceptibility weighted imaging and gradient echo imaging and Diffusion weighted im aging. The patient was then given intravenous contrast and multi planar, T1 fat-saturation images wer e obtained. IV Contrast: 6 cc Gadavist FINDINGS: Ventricular dilation with in proportion to cerebral atrophy. Remote injuries to the left frontal lobe . Extensive white matter changes which are confluent and scattered foci. Diffusion-weighted imaging s hows no evidence of restricted diffusion to suggest acute/subacute infarct. Intracranial arterial francisco javier w voids are maintained. Midline structures show no abnormality. After administration of gadolinium, n o abnormal enhancement is seen. The bone marrow signal is within normal limits. Paranasal sinuses and mastoid air cells: No significant paranasal sinus disease. Visualized orbits: Bilateral aphakia Left parotid gland lesion as seen on prior imaging which is probably cystic and nonenhancing. This is partially visualized on some sequences. IMPRESSION: 1. No evidence of intracranial mass, acute/subacute infarct, or abnormal enhancement. 2. Extensive white matter changes, likely related to small vessel ischemic disease 3. Remote left frontal lobe injury. 4. Left parotid gland probable cyst.
[2023-05-27] MEDS: TIMOLOL 0.5% OPHTH DROPS 5 ML BTL LEFT EYE SCH (11:16)
[2023-05-27] MEDS: CALCIUM CARBONATE 500 MG CHEWABLE PO SCH (11:20)
[2023-05-27 11:55] LABS: Basophils # (A) 0.02 X 10*3/uL (0.00-0.10); Basophils % (A) 0.4 %; Eosinophils # (A) 0.24 X 10*3/uL (0.04-0.35); Eosinophils % (A) 4.8 %; Lymphocytes # (A) 0.57 X 10*3/uL (0.90-5.00); Lymphocytes % (A) 11.5 %; Monocytes # (A) 0.65 X 10*3/uL (0.20-1.00); Monocytes % (A) 13.1 %; Neutrophils # (A) 3.46 X 10*3/uL (1.80-7.70)
[2023-05-27 11:56] LABS: Anisocytosis (M) 2+
== END 2023-05-27 15:46 | DRG 155 ==
LOC: EC 16:44 → 4SSUR 20:14
PROVIDERS: ADMIT Family Medicine; ATTEND Family Medicine
DX: K11.21 Acute sialoadenitis (principal); G91.9 Hydrocephalus, unspecified; H54.8 Legal blindness, as defined in USA; H40.9 Unspecified glaucoma; H26.9 Unspecified cataract; E03.9 Hypothyroidism, unspecified; D50.9 Iron deficiency anemia, unspecified; Z28.311 Partially vaccinated for COVID-19; J44.9 Chronic obstructive pulmonary disease, unspecified; M05.10 Rheumatoid lung disease with rheumatoid arthritis of unspecified site; Z86.14 Personal history of Methicillin resistant Staphylococcus aureus infection; Z86.718 Personal history of other venous thrombosis and embolism; G40.909 Epilepsy, unspecified, not intractable, without status epilepticus; H49.02 Third [oculomotor] nerve palsy, left eye; K21.9 Gastro-esophageal reflux disease without esophagitis; G93.89 Other specified disorders of brain; Z88.3 Allergy status to other anti-infective agents; Z88.0 Allergy status to penicillin; I25.10 Atherosclerotic heart disease of native coronary artery without angina pectoris; Z86.73 Personal history of transient ischemic attack (TIA), and cerebral infarction without residual deficits; K27.9 Peptic ulcer, site unspecified, unspecified as acute or chronic, without hemorrhage or perforation; Z66 Do not resuscitate; Z79.02 Long term (current) use of antithrombotics/antiplatelets; Z79.899 Other long term (current) drug therapy; Z87.11 Personal history of peptic ulcer disease
CPT/HCPCS: 36415; 70450; 70496; 70498; 70553; 71045; 71046; 72127; 80048; 80053; 80061; 80185; 80186; 82550; 82565; 82607; 82746; 83036; 83605; 84443; 84520; 85025; 85610; 85652; 85730; 87040; 87449; 94760; 96365; 96366; 96367; 99285

== ENCOUNTER 2023-07-31 12:20 | Outpatient (CLI) | payer MEDICARE, OTHER ==
[2023-07-31 13:59] VITALS: BP 145/87; PULSE 77; RESP 16; TEMP 98.1
--- NOTE | 2023-07-31 15:02 | US ---
ULTRASOUND GUIDED FNA THYROID BIOPSY: CLINICAL HISTORY: Large right thyroid nodule FINDINGS: The procedure was explained to the patient. The risks, complications, benefits and alternatives were discussed and any questions were answered. Informed consent was obtained. Patient was placed supin e on the ultrasound table and prepped and draped in the usual sterile fashion. Utilizing a 25 gauge needle, five passes were made into the requested right thyroid nodule. Patient was stable throughout the procedure. Pathology is pending. All elements of maximal barrier technique were utilized. IMPRESSION: 1. Successful ultrasound guided FNA thyroid biopsy.
== END 2023-07-31 15:00 ==
LOC: RADPROMAIN 12:20
PROVIDERS: ATTEND Otolaryngology
DX: E04.1 Nontoxic single thyroid nodule (principal)
CPT/HCPCS: 10005